=== PATIENT | male | born 1950 | race Caucasian/White ===

== ENCOUNTER → 2018-02-13 10:41 | Outpatient (CLI) | payer MEDICARE, OTHER, SELFPAY ==
[2018-02-13 13:12] LABS: PSA,Total- Diagnostic 4.68 ng/mL (0.0-4.0)
== END ==
PROVIDERS: Family Provider Internal Medicine; PCP Internal Medicine; Visit Provider Urology
DX: C61 Malignant neoplasm of prostate (principal)
CPT/HCPCS: 36415; 84153

== ENCOUNTER → 2018-03-05 17:18 | Outpatient (CLI) | payer MEDICARE, OTHER, SELFPAY ==
--- NOTE | 2018-03-05 | IMM_PTH ---
PATIENT: FARHAD DUNAWAY LOC: [facility] U#:[id number] AGE/SX: 74/M ROOM: RE03/05/[address]: Dr. Mauro Gerber MD : 1950 BED: DIS: SPEC #: [id number] RECD: 03/07/18 11:21 STATUS: ANA CURT #: [id number] BASIL: 03/05/18 00:[address]: Mauro Gerber DEPT: IMMUNOHISTOCHEMISTRY RECD BY: Nisha Duran Tissues: F - PROSTATE LEFT Procedures: P40 (add) 34BE12 (initial) PHYSICIAN & INSTITUTION [place] [id number] SPECIMEN INFORMATION: Tissue Source: F - Left prostate, base, core biopsy Clinical Info: Elevated PSA Specimen Number: [id number] CPT code: 07724, 80917 METHODOLOGY: Deparaffinized sections of prefer/formalin-fixed tissue or PAP/DQ stained slides are incubated with monoclonal/polyclonal antibodies/oligonucleotide probes. Localization is made via biotin free immunoperoxidase method. Appropriate controls are performed and reacted as expected. Results on target cell population are indicated in the following table: RESULTS: ANTIBODY / CLONE RESULT Block F P40 (BC28) negative 34BE12 (34BE12) negative These tests were developed and their performance characteristics determined by [facility]. They may not have been cleared or approved by the U.S. Food and Drug Administration. The FDA has determined that such clearance or approval is not necessary. INTERPRETATION: F. Left prostate, base, core biopsy: Adenocarcinoma. SJ:shahab 03/08/18
--- NOTE | 2018-03-05 08:00 | PROSBIL_PTH ---
PATIENT: FARHAD DUNAWAY LOC: [facility] U#:[id number] AGE/SX: 74/M ROOM: RE03/05/[address]: Dr. Mauro Gerber MD : 1950 BED: DIS: SPEC #: [id number] RECD: 03/05/18 16:56 STATUS: ANA CURT #: [id number] BASIL: 03/05/18 08:[address]: Mauro Gerber DEPT: SURGICAL PATHOLOGY RECD BY: Brent Prabhakar ENTERED: 03/06/18 07:31 SP TYPE: PROST BX ANDRÉS DR: Dr. Katarina Abarca MD Tissues: A - PROSTATE RIGHT B - PROSTATE RIGHT C - PROSTATE RIGHT D - PROSTATE LEFT E - PROSTATE LEFT F - PROSTATE LEFT Procedures: PROSTATE BX HEADER OPERATION: Prostate biopsy PRE-OP DIAGNOSIS: Elevated PSA TISSUE SUBMITTED: A - Right apex, B - Right mid, C - Right base, D - Left apex, E - Left mid, F - Left base MICROSCOPIC DIAGNOSIS A. Right prostate, apex, core biopsy: Prostatic tissue, negative for malignancy. Focal atrophy. B. Right prostate, mid, core biopsy: Prostatic adenocarcinoma: [place] grade: 3+4=7 Number of cores involved: 2 out of 2 Proportion of tissue involved: ~25% Perineural invasion: Not identified. Greatest tumor length: 0.5 cm, discontinuous C. Right prostate, base, core biopsy: Prostatic tissue, negative for malignancy. D. Left prostate, apex, core biopsy: Prostatic adenocarcinoma: [place] grade: 3+3=6 Number of cores involved: 1 out of 3 Proportion of tissue involved: ~15% Perineural invasion: Not identified. Greatest tumor length: 0.3 cm E. Left prostate, mid, core biopsy: Prostatic tissue, negative for malignancy. F. Left prostate, base, core biopsy: Prostatic adenocarcinoma: [place] grade: 3+3=6 Number of cores involved: 1 out of 3 Proportion of tissue involved: ~5% Perineural invasion: Not identified. Greatest tumor length: 0.1 cm See comment. SJ:shahab 03/07/18 COMMENT F. Immunohistochemistry ([id number]) supports the above diagnosis. MICROSCOPIC DESCRIPTION Slides are reviewed. GROSS DESCRIPTION A - Received is one container designated prostate, right apex. The specimen consists of three elongated fragments of light kelsey-white soft tissue measuring 0.3 to 1.2 cm in length and 0.1 cm in diameter. The specimen is totally submitted in one cassette. B - Received is one container designated prostate, right mid. The specimen consists of two elongated fragments of light kelsey-white soft tissue each measuring 1.6 cm in length and 0.1 cm in diameter. The specimen is totally submitted in one cassette. C - Received is one container designated prostate, right base. The specimen consists of two elongated fragments of light kelsey-white soft tissue measuring 1 and 1.5 cm in length and 0.1 cm in diameter. The specimen is totally submitted in one cassette. D - Received is one container designated prostate, left apex. The specimen consists of three elongated fragments of light kelsey-white soft tissue measuring 0.3 to 1.5 cm in length and 0.1 cm in diameter. The specimen is totally submitted in one cassette. E - Received is one container designated prostate, left mid. The specimen consists of two elongated fragments of light kelsey-white soft tissue measuring 1 and 1.5 cm in length and 0.1 cm in diameter. The specimen is totally submitted in one cassette. F - Received is one container designated prostate, left base. The specimen consists of three elongated fragments of light kelsey-white soft tissue measuring 0.6 to 1.5 cm in length and 0.1 cm in diameter. The specimen is totally submitted in one cassette. / TREY:shahab 03/06/18 TC:0 CPT: G0146 ADDENDUM ADDENDUM ADDENDUM ADDENDUM ADDENDUM ADDENDUM ADDENDUM ADDENDUM 04/10/2018 10:32 ADDENDUM 04/10/2018 10:32 ADDENDUM 04/10/2018 10:32 ADDENDUM 04/10/2018 10:32 ADDENDUM 04/10/2018 10:32 An order for Oncotype testing was received from Dr. Gerber. This necessitated case review, block and slide selection by pathologist at [facility]. Genomic Prostate Score = 28 Results of the complete Oncotype testing (CSID report) are viewable in EMR under: Reports - Pathology - Lab Pathology Report, Scanned.
== END ==
PROVIDERS: Visit Provider Urology
DX: R97.20 Elevated prostate specific antigen [PSA] (principal)
CPT/HCPCS: 88305; 88341; 88342; G0416

== ENCOUNTER → 2018-04-23 12:38 | Outpatient (CLI) | payer MEDICARE, OTHER, SELFPAY ==
[2018-04-23 13:43] LABS: PSA,Total- Diagnostic 4.19 ng/mL (0.0-4.0)
== END ==
PROVIDERS: Family Provider Internal Medicine; PCP Internal Medicine; Visit Provider Urology
DX: C61 Malignant neoplasm of prostate (principal)
CPT/HCPCS: 36415; 84153

== ENCOUNTER 2018-06-06 05:21 | Inpatient (IN) | payer MEDICARE, OTHER, SELFPAY ==
[2018-05-29 13:09] VITALS: BP 144/72; PULSE 77; RESP 16; TEMP 36.6; O2SAT 99; BMI 29.5
[2018-05-29 15:11] LABS: Hemoglobin 13.5 g/dl (13.0-16.5); Mean Corp Hgb Conc 34.6 g/gl (32-36); Mean Corpuscular Hgb 33.2 pg (27.0-32.0); Mean Corpuscular Volume 95.8 fL (80-94); Platelet Count 238 K/mm3 (150-450); RBC Distribution Width CV 13.2 % (11.6-14.6); RBC Distribution Width SD 44.6 fl (35.1-43.9); Red Blood Count 4.07 M/mm3 (4.6-6.2); White Blood Count 8.7 K/mm3 (4.4-11.0)
[2018-05-29 15:12] LABS: Scan Indicated on CBC? Y/N NO
[2018-05-29 15:38] LABS: Anion Gap 5 (5-15); BUN 20 mg/dL (7-18); BUN/Creat Ratio 18.5 RATIO (10-20); Calcium,Total 9.7 mg/dL (8.5-10.1); Chloride 105 mmol/L (98-107); Creatinine, Serum 1.08 mg/dL (0.70-1.30); EST Glomerular Filtration Rate 72 mL/min (>60); Est Glom Filt Rate - Afr Amer 88 mL/min (>60); Estimated Creatinine Clearance 62.05 ml/min; Glucose 95 mg/dL (74-106); Potassium 4.3 mmol/L (3.5-5.1); Sodium Level 139 mmol/L (136-145)
[2018-06-06] VITALS (12 sets, daily range): BP systolic 140–167; BP diastolic 54–71; PULSE 65–87; RESP 16–20; TEMP 36.1–37; O2SAT 96–100; BMI 29.5
--- NOTE | 2018-06-06 | PROST_PTH ---
PATIENT: FARHAD DUNAWAY LOC: [facility] U#:[id number] AGE/SX: 67/M [place] [facility] [place] RE06/06/[address]: Dr. Mauro Gerber MD : 1950 BED: 1 DIS: 06/07/2018 SPEC #: [id number] RECD: 06/06/18 15:12 STATUS: ANA REQ #: [id number] BASIL: 06/06/18 00:[address]: Mauro Gerber DEPT: SURGICAL PATHOLOGY RECD BY: Jone Jason ENTERED: 06/06/18 15:12 SP TYPE: PROSTATE OTHR DR: Dr. Katarina Abarca MD Tissues: A - Adipose tissue B - Prostate, NOS Procedures: Surgery Specimen Level IV Surgery Specimen Level HEADER OPERATION: Lap robotic radical prostatectomy PRE-OP DIAGNOSIS: Prostate cancer with elevated PSA TISSUE SUBMITTED: A - Fat over prostate, B - Prostate MICROSCOPIC DIAGNOSIS A. Fat over prostate, excision: Mature adipose tissue. No evidence of malignancy. B. Prostate, radical prostatectomy: Invasive adenocarcinoma. See cancer checklist below. AM:shahab 06/08/18 COMMENT PROSTATE CANCER (RADICAL) SUMMARY: Procedure - radical prostatectomy Prostate size - 5.5 x 4.5 x 3.8 cm Prostate weight - 70grams Lymph node sampling - no lymph nodes present. Histologic type - adenocarcinoma Histologic grade (Alpha Pattern): Primary pattern - 3 Secondary pattern - 3 Tertiary pattern - 3 Total Alpha score - 6 Tumor Quantitation: Tumor size - 2 x 1.5 x 0.7 cm (from glass slides) Extraprostatic extension - not identified Seminal vesicle invasion - not identified Margins - uninvolved by invasive carcinoma. Treatment effect on carcinoma - unknown Lymph-Vascular invasion - not identified Perineural invasion - focally present Additional pathologic findings - acute and chronic prostatitis, focal PATHOLOGIC STAGE: pT2c Nx Mx The above summary is in compliance with [employer] (CAP) Cancer Protocols Checklist and [place] [employer] Committee on Cancer (AJCC), Staging Manual, 8th Ed. Adenocarcinoma is identified in the most apical shave, distal urethral margin. The base of the gland is free of carcinoma. There is no extraprostatic tumor seen. Clinical correlation is suggested. MICROSCOPIC DESCRIPTION Slides are reviewed. GROSS DESCRIPTION A - Received in fixative is one container labeled with the patient's name and designated fat over prostate. The specimen consists of a piece of yellow adipose tissue measuring 3.5 x 2.5 x 0.5 cm. No mass lesion is identified. Asphalt Tar [employer] Gra[employer] Roofer sections are submitted in one cassette. The specimen will be submitted after overnight fixation. / SJ:shahab 06/06/18 B - Received in fixative is one container labeled with the patient's name and designated prostate. The specimen consists of a prostate gland including seminal vesicles and vas deferens. The prostate gland measures 5.5 cm transversely, 4.5 cm craniocaudally and 3.8 cm anterior-posteriorly. The gland weighs 70 gm. On palpation, no mass lesions are identified. The specimen is differentially inked as follows: anterior - red, right half - blue, left half - green and posterior portion of entire gland - black. The specimen is cut in a superior to inferior fashion in 3 to 4 mm intervals. No distinct mass lesion is identified. Asphalt [place] Roofer sections are submitted in 20 cassettes as follows: 1 - distal urethral shaved margin, 2 - proximal urethral shaved margin, 3 - seminal vesicles, 4 & 5 - most distal section of prostate gland, 6-9 - apex of gland, 10-15 - mid portion, 16-20 - basal portion of gland. / AM:shahab 06/07/18 TC:0 CPT: 01529, 09791
[2018-06-06 06:11] LABS: Bedside Glucose 104 mg/dL (70-110)
--- NOTE | 2018-06-06 07:28 | PCM.DC.URO ---
Discharge Diet: Light diet - advance as tolerated, Soft diet Discharge Activity: May not drive while taking narcotic pain medications., May Shower May shower in (days): 1 Lifting Restrictions: no lifting > 10 lbs Call your doctor if your incision/area has: Continuous Slow Oozing, Sudden Increased Bleeding, Increased Pain/ Swelling, Increased Redness, Foul Smelling Discharge, Swelling at the incision site Call your doctor if you observe: Fever of 101 or Higher, Inability to have a bowel movement, Uncontrolled pain Suture Line Care: Avoid Pulling/Pushing, Avoid Pinching/Bending Catheter: Marie to leg bag, Marie to large bag Drain: [place] Instructions: Discharge Instructions for Radical Prostatectomy Allergies/Adverse Reactions: Allergies No Known Allergies Allergy (Verified 05/29/18 13:03) Medications to take at Discharge Allopurinol 100 mg PO DAILY 05/29/18 Aspirin E.C. [Ecotrin] 81 mg PO DAILY@0800 05/29/18 Atorvastatin Calcium [Lipitor] 20 mg PO QHS 05/29/18 Lisinopril 20 mg PO DAILY 05/29/18 Metformin HCl [Metformin HCl ER] 1,000 mg PO DAILY 05/29/18 Multivitamin [Multiple Vitamins] 1 each PO DAILY 05/29/18 Ciprofloxacin [Cipro] 500 mg PO BID #14 tab 06/06/18 Docusate Sodium [Colace] 100 mg PO BID #20 cap 06/06/18 Hydrocodone/Acetaminophen [[place] 5-325 Tablet] 1 ea PO Q4H PRN PRN #14 tab 06/06/18 The following prescriptions were given: Hydrocodone/Acetaminophen [[place] 5-325 Tablet] 1 ea PO Q4H PRN PRN #14 tab PRN Reason: Pain Ciprofloxacin [Cipro] 500 mg PO BID #14 tab Docusate Sodium [Colace] 100 mg PO BID #20 cap Primary Care Physician: Katarina Abarca MD [Primary Care Provider] - Test Results: Test results from this visit will be discussed in further detail at your follow-up appointment, if applicable. Please Follow Up With: Mauro Gerber MD When: Call for an appt next to remove marie. Proposed Discharge Date: 06/07/18
--- NOTE | 2018-06-06 07:31 | DCINST_ITS ---
Discharge Diet: Light diet - advance as tolerated, Soft diet Discharge Activity: May not drive while taking narcotic pain medications., May Shower May shower in (days): 1 Lifting Restrictions: no lifting > 10 lbs Call your doctor if your incision/area has: Continuous Slow Oozing, Sudden Increased Bleeding, Increased Pain/ Swelling, Increased Redness, Foul Smelling Discharge, Swelling at the incision site Call your doctor if you observe: Fever of 101 or Higher, Inability to have a bowel movement, Uncontrolled pain Suture Line Care: Avoid Pulling/Pushing, Avoid Pinching/Bending Catheter: Marie to leg bag, Marie to large bag Drain: [place] Instructions: Discharge Instructions for Radical Prostatectomy Allergies/Adverse Reactions: Allergies No Known Allergies Allergy (Verified 05/29/18 13:03) Medications to take at Discharge Allopurinol 100 mg PO DAILY 05/29/18 Aspirin E.C. [Ecotrin] 81 mg PO DAILY@0800 05/29/18 Atorvastatin Calcium [Lipitor] 20 mg PO QHS 05/29/18 Lisinopril 20 mg PO DAILY 05/29/18 Metformin HCl [Metformin HCl ER] 1,000 mg PO DAILY 05/29/18 Multivitamin [Multiple Vitamins] 1 each PO DAILY 05/29/18 Ciprofloxacin [Cipro] 500 mg PO BID #14 tab 06/06/18 Docusate Sodium [Colace] 100 mg PO BID #20 cap 06/06/18 Hydrocodone/Acetaminophen [[place] 5-325 Tablet] 1 ea PO Q4H PRN PRN #14 tab 06/06/18 The following prescriptions were given: Hydrocodone/Acetaminophen [[place] 5-325 Tablet] 1 ea PO Q4H PRN PRN #14 tab PRN Reason: Pain Ciprofloxacin [Cipro] 500 mg PO BID #14 tab Docusate Sodium [Colace] 100 mg PO BID #20 cap Primary Care Physician: Katarina Abarca MD [Primary Care Provider] - Test Results: Test results from this visit will be discussed in further detail at your follow- up appointment, if applicable. Please Follow Up With: Mauro Gerber MD When: Call for an appt next to remove marie. Proposed Discharge Date: 06/07/18
[2018-06-06] MEDS: Cefazolin 2 GM in 0.9% Normal Saline 100 ML IV (07:35)
[2018-06-06] MEDS: Bupivacaine Mpf 0.5% 30 ML VIAL (07:57)
--- NOTE | 2018-06-06 10:53 | PCM.OPRPT ---
Report of Operation Date of Procedure: 06/06/18 Pre-Operative Diagnosis: Prostate cancer Post-Operative Diagnosis: Same Surgery/Procedure Performed:: Laparoscopic robotic assisted radical prostatectomy. EMG monitoring of pelvic nerves and sphincter. Suture suspension of the urethra to prevent incontinence Description of Surgical Findings:: 67-year-old male taken back to the operating room at the smooth induction of general anesthesia he was placed supine on the table in the dorsolithotomy position, penis and testicles and the abdomen was shaved and prepped and draped in usual sterile fashion, we placed a robotic trochars after obtaining pneumoperitoneum. The robot was docked I first dissected the sigmoid colon off the lateral wall then retracted the colon very carefully out of the pelvis and then dissected deep into the pelvis below the prostate and bladder dissected out the seminal vesicles and vas deferens both the left and right side and then created the space below the prostate above the rectum up to the sphincter posterior to the prostate, we then came out the pelvis dropped the bladder created the space of Retzius put the bladder on traction with the fourth arm I then dissected the fat over the prostate and sent this off as specimen we incised the endopelvic fascia in the left the right side and dissected up to the apex the apex was then dissected out and then we placed a stitch in the dorsal vein complex. I then came back to the bladder neck and prostate junction dissected between the bladder neck and the prostate junction down to the prostate and down to the catheter pulled the catheter up in traction dissected posteriorly between the bladder and the prostate until we reached the seminal vesicles and vas deferens I then dropped and the EMG electrodes were placed electrodes on the pelvic sidewalls and the right and left side checked the location of the nerves Ellik sidewall the left and right side after this was accomplished then mapping of these nerves were accomplished then I went through the right pedicle dissected the neurovascular bundle off the right side of the prostate all the way to the apex then went to the left pedicle dissected the neurovascular bundle on the left side all the way up to the apex transected to the dorsal vein complex dissected the apex of the prostate transected the urethra the prostate was then removed we then checked the EMG sphincter action and there was good EMG response of the sphincter the right pelvic lymph sphincter EMGs were intact the left weak signal in the left side. We then completed our suture suspension of the urethra between the bladder neck and the urethra using a V lock stitch this was done over a catheter after the urethra was suspended up then we completed the anastomosis catheter was left in place and the robot was undocked we extracted the prostate to the umbilical incision closed all the ports with Ankit Trujillo with a Ankit Trujillo stitches and subcuticular stitches. Patient anesthetic is currently being reversed there was minimal to no blood loss a good urethral sparing a good anastomosis. Type of Anesthesia:: General Drains: 18 fr [place] tip Estimated Blood Loss (mL): 50cc - Admit VTE Documentation VTE Present on Admission: No VTE Mechan Device Prophylaxis: SCD's VTE Pharm Prophylaxis ordered?: No
[2018-06-06 11:26] LABS: Bedside Glucose 143 mg/dL (70-110)
[2018-06-06] MEDS: Lactated Ringers 1,000 ML 125 ML IV ×4 (11:38→23:58)
[2018-06-06 11:46] LABS: Hematocrit 36.5 % (40-54); Hemoglobin 12.3 g/dl (13.0-16.5); Mean Corp Hgb Conc 33.7 g/gl (32-36); Mean Corpuscular Hgb 32.5 pg (27.0-32.0); Mean Corpuscular Volume 96.6 fL (80-94); Mean Platelet Vol. 10.3 fl (6.2-12.0); Platelet Count 210 K/mm3 (150-450); RBC Distribution Width CV 13.7 % (11.6-14.6); RBC Distribution Width SD 47.7 fl (35.1-43.9); Red Blood Count 3.78 M/mm3 (4.6-6.2); White Blood Count 13.1 K/mm3 (4.4-11.0)
[2018-06-06] MEDS: Ketorolac 15 MG/ML Vial IV ×3 (11:46→23:57)
[2018-06-06 11:47] LABS: Scan Indicated on CBC? Y/N NO
[2018-06-06 12:00] LABS: Anion Gap 9 (5-15); BUN 13 mg/dL (7-18); BUN/Creat Ratio 11.8 RATIO (10-20); Calcium,Total 8.7 mg/dL (8.5-10.1); Chloride 106 mmol/L (98-107); EST Glomerular Filtration Rate 71 mL/min (>60); Est Glom Filt Rate - Afr Amer 86 mL/min (>60); Estimated Creatinine Clearance 60.93 ml/min; Glucose 164 mg/dL (74-106); Potassium 4.1 mmol/L (3.5-5.1); Sodium Level 141 mmol/L (136-145)
[2018-06-06] MEDS: Aspirin E.C. 81 MG Tablet PO (17:39)
[2018-06-06] MEDS: 0.9% NaCl Peripheral Flush Adult/Peds IV (18:02)
[2018-06-06] MEDS: Ondansetron 4 MG/2 ML Vial IV (18:03)
[2018-06-06] MEDS: HYDROcodone Bitartrate/Apap 5/325 Tablet PO (19:05)
[2018-06-06] MEDS: Ciprofloxacin 500 MG Tablet PO (21:34)
[2018-06-06] MEDS: Docusate Sodium 100 MG Capsule 200 MG PO (21:34)
[2018-06-07 03:30] VITALS: BP 145/71; PULSE 83; RESP 16; TEMP 36.9; O2SAT 99
[2018-06-07 05:28] LABS: Hematocrit 32.6 % (40-54); Hemoglobin 11.3 g/dl (13.0-16.5); Mean Corp Hgb Conc 34.7 g/gl (32-36); Mean Corpuscular Hgb 33.5 pg (27.0-32.0); Mean Corpuscular Volume 96.7 fL (80-94); Mean Platelet Vol. 10.4 fl (6.2-12.0); Platelet Count 174 K/mm3 (150-450); RBC Distribution Width SD 43.6 fl (35.1-43.9); Red Blood Count 3.37 M/mm3 (4.6-6.2); White Blood Count 11.4 K/mm3 (4.4-11.0)
[2018-06-07 05:40] LABS: Anion Gap 8 (5-15); BUN 13 mg/dL (7-18); BUN/Creat Ratio 12.3 RATIO (10-20); Calcium,Total 8.3 mg/dL (8.5-10.1); Chloride 103 mmol/L (98-107); Creatinine, Serum 1.06 mg/dL (0.70-1.30); EST Glomerular Filtration Rate 74 mL/min (>60); Est Glom Filt Rate - Afr Amer 89 mL/min (>60); Estimated Creatinine Clearance 63.22 ml/min; Glucose 105 mg/dL (74-106); Potassium 4.1 mmol/L (3.5-5.1); Sodium Level 139 mmol/L (136-145)
[2018-06-07 06:12] LABS: Scan Indicated on CBC? Y/N NO
[2018-06-07] MEDS: Ketorolac 15 MG/ML Vial IV (06:36)
[2018-06-07] MEDS: 0.9% NaCl Peripheral Flush Adult/Peds IV (06:36)
[2018-06-07 07:25] VITALS: BP 131/62; PULSE 74; RESP 16; TEMP 36.9; O2SAT 96
--- NOTE | 2018-06-07 07:34 | PCM.PROGNOTE ---
Subjective: doing well, no pain - Physical Exam General: Alert, Oriented x3, Cooperative HEENT: Atraumatic, PERRLA, EOMI, Normocephalic Neck: Supple, No JVD, Negative Carotid Bruits Lungs: Clear to auscultation, Normal air movement Cardiovascular: Regular rate, No murmurs Abdomen: Bowel Sounds Present, Soft, Non Tender Extremities: No edema, Capillary Refill Less than 3 Seconds Skin: No rashes, No breakdown Musculoskeletal: No Tenderness to Palpation of Joints or Extremities Neurological: Cranial nerves II-XII grossly intact Psych/Mental Status: Normal Affect, Appropriate Vital Signs Temp Pulse Resp BP Pulse Ox 98.4 F 74 16 131/62 H 96 06/07/18 07:25 06/07/18 07:25 06/07/18 07:25 06/07/18 07:25 06/07/18 07:25 Oxygen Flow Rate (L/min) 2 Oxygen Delivery Method Room Air Weight: 87 kg Body Mass Index (BMI) 29.5 Intake and Output for Last 24 Hours 06/05/18 06/06/18 06/07/18 23:59 23:59 23:59 Intake Total 4548 / 4548 1666 / 1666 Output Total 475 / 475 350 / 350 Balance 4073 / 4073 1316 / 1316 Laboratory Tests Past 24 Hrs 06/06/18 06/06/18 06/07/18 11:40 11:40 05:20 WBC 13.1 H 11.4 H RBC 3.78 L 3.37 L Hgb 12.3 L 11.3 L Hct 36.5 L 32.6 L MCV 96.6 H 96.7 H MCH 32.5 H 33.5 H MCHC 33.7 34.7 RDW 13.7 13.0 RDW Differential 47.7 H 43.6 Plt Count 210 174 MPV 10.3 10.4 Sodium 141 Potassium 4.1 Chloride 106 Carbon Dioxide 26.0 Anion Gap 9 BUN 13 Creatinine 1.10 Estim Creat Clear Calc 60.93 Est GFR (MDRD) Af Amer 86 Est GFR (MDRD) Non-Af 71 BUN/Creatinine Ratio 11.8 Glucose 164 H Calcium 8.7 06/07/18 05:20 WBC RBC Hgb Hct MCV MCH MCHC RDW RDW Differential Plt Count MPV Sodium 139 Potassium 4.1 Chloride 103 Carbon Dioxide 28.0 Anion Gap 8 BUN 13 Creatinine 1.06 Estim Creat Clear Calc 63.22 Est GFR (MDRD) Af Amer 89 Est GFR (MDRD) Non-Af 74 BUN/Creatinine Ratio 12.3 Glucose 105 Calcium 8.3 L POC Glucose 06/06/18 11:23 POC Glucose 143 H Medical Necessity - Tobacco Use Smoking Status: Current every day smoker Assessment/Plan home if tolerates diet okay and ambulates ok home with marie.
[2018-06-07] MEDS: Aspirin E.C. 81 MG Tablet PO (08:02)
[2018-06-07] MEDS: Multivitamins,Therapeutic Tablet 1 TABLET PO (08:02)
[2018-06-07] MEDS: Docusate Sodium 100 MG Capsule 200 MG PO (08:03)
[2018-06-07] MEDS: Allopurinol 100 MG Tablet PO (08:03)
[2018-06-07] MEDS: Lisinopril 20 MG Tablet PO (08:03)
[2018-06-07] MEDS: Ciprofloxacin 500 MG Tablet PO (08:03)
--- NOTE | 2018-06-07 08:37 | CASEMGMT ---
As per plate cleaner, pt will bring a copy of LW/POA into the hospital. ARETHA Nascimento, ADDICTION COUNSELOR
--- NOTE | 2018-06-07 11:57 | CASEMGMT ---
RN CM Note: Intro role of CM to patient in room. 06/06/18- pt had lap robotic assisted TURP. Pt has no concerns re: dc today. Plan is to have f/u with Dr. Gerber on dc. Questions answered. No new needs identified. PCP: Dr. Barbara Abarca Specialist: Dr. Gerber Pharmacy: [facility], [place] in [place] Prescription coverage: yes Living arrangements: own home with who is able to assist. DME: none DC PLAN: Home with physician f/u.
== END 2018-06-07 12:10 | disposition home or self-care (01) | DRG 708 ==
LOC: ACINP 05:22 → MS2 12:18
PROVIDERS: Admitting Provider Urology; Family Provider Internal Medicine; PCP Internal Medicine; Referring Provider Urology; Visit Provider Urology
PROC: 0VT04ZZ Resection of Prostate, Percutaneous Endoscopic Approach (ICD-10-PCS; CPT 55866; principal; 2018-06-06 07:10)
DX: C61 Malignant neoplasm of prostate (principal); I10 Essential (primary) hypertension; E11.9 Type 2 diabetes mellitus without complications; Z79.84 Long term (current) use of oral hypoglycemic drugs; F17.200 Nicotine dependence, unspecified, uncomplicated
CPT/HCPCS: 36415; 80048; 82962; 83036; 85027; 86850; 86900; 88304; 88305; 88309; 93005; J7120; A4216; J2405

== ENCOUNTER 2018-06-12 10:18 | Emergency (ER) | payer MEDICARE, OTHER, SELFPAY ==
[2018-06-12 10:20] VITALS: BP 156/69; PULSE 79; RESP 18; TEMP 36.8; O2SAT 100; BMI 29.4
--- NOTE | 2018-06-12 10:52 | ED.VISSUMM ---
- ER Visit Summary Date of Service: 06/12/18 Chief Complaint: Constipation History of Present Illness: The patient is a 67 M with no bowel movement for 6 days. He has not had a bowel movement since his prostatectomy 6 days ago. He has been taking Colace with no improvement. He was on [place], his last dose was yesterday. He does feel like he has to have a bowel movement. He is passing gas. No significant pain. No fevers. No urinary symptoms. Physical Examination: Afebrile and vital signs unremarkable except a blood pressure of 156/69. Abdomen is slightly distended but nontender and soft. Postoperative sites are clean, dry, and intact. Skin appears normal. Rectal exam is pending at the time of this dictation. Test Results: X-ray shows a normal bowel gas pattern. Emergency Department Course and Treatment: Rectal exam showed no stool, mass, or bleeding. X-rays unremarkable. No sign of ileus or obstruction pattern. Patient will be treated with magnesium citrate. He was also given a prescription for senna. Follow-up with his doctor or return for any new or worsening issues. Treatment Plan: As above Disposition: Discharged Impression: 1. Constipation This note was generated with [employer] dictation software. It may contain incorrect words, spelling, and punctuation that were not noted in review of the chart prior to signing ED Disposition - Plan for ED Patient: Chief Complaint: Constipation Referrals: Katarina Abarca MD [Primary Care Provider] -
--- NOTE | 2018-06-12 11:29 | RAD_ITS ---
STUDY: X-RAY - ABDOMEN/PELVIS REASON FOR EXAM: Male, 67 years old. No bowel movements since one week. Recent prostatectomy. Hematuria. TECHNIQUE: Two AP supine views of the abdomen and pelvis. COMPARISON: None. FINDINGS: There is an unremarkable bowel gas pattern. The visualized liver, spleen and kidneys are grossly normal in size and morphology. A catheter is seen in the pelvis most likely within the urinary bladder. There are diffuse degenerative changes of the visualized lumbar spine. RAD/Abdomen Single View (Portable) IMPRESSION: A catheter is seen within the urinary bladder. Electronically Signed: Ollie Davis MD at 12:49 EST Tel [phone], Service support ,
--- NOTE | 2018-06-12 13:05 | ED.DEP ---
ED Disposition - Plan for ED Patient: Chief Complaint: Constipation Instructions: ED Constipation Prescriptions: Senna [Senokot] 1 tab PO DAILY #10 tab Referrals: Katarina Abarca MD [Primary Care Provider] -
[2018-06-12] MEDS: Magnesium Citrate 300 ML PO (13:14)
== END 2018-06-12 13:15 | disposition home or self-care (01) ==
LOC: ED 11:00
PROVIDERS: Emergency Provider Emergency Medicine; Family Provider Internal Medicine; PCP Internal Medicine
DX: K59.00 Constipation, unspecified (principal); I10 Essential (primary) hypertension; E11.9 Type 2 diabetes mellitus without complications; M10.9 Gout, unspecified; Z79.84 Long term (current) use of oral hypoglycemic drugs; Z79.82 Long term (current) use of aspirin; Z79.899 Other long term (current) drug therapy; Z72.0 Tobacco use
CPT/HCPCS: 74018; 99282

== ENCOUNTER → 2018-08-27 11:00 | Outpatient (CLI) | payer MEDICARE, OTHER, SELFPAY ==
[2018-08-27 12:08] LABS: PSA,Total- Diagnostic < 0.01 ng/mL (0.0-4.0)
--- OUTSIDE RECORDS SUMMARY | 2018-10-29 21:19 | XMS RPT_ITS ---
:1950 Author Organization [facility] Care Team Providers Name Role Phone TALAMPMARLENE, PRISCILA D Referring Unavailable TALAMPAS, PRISCILA D Attending Unavailable TALAMPAS, PRISCILA D Referring Unavailable TALAMPAS, PRISCILA D Attending Unavailable ZabrinaMauro Attending Unavailable ZabrinaMauro Referring Unavailable Talampas, Priscila Primary Care Unavailable ZabrinaMauro Attending Unavailable ZabrinaMauro Referring Unavailable Talampas, Priscila Primary Care Unavailable ZabrinaMauro Attending Unavailable Talampas, Priscila Primary Care Unavailable ZabrinaMauro soriano Referring Unavailable ZabrinaMauro Attending Unavailable ZabrinaMauro soriano Referring Unavailable Talampas, Priscila Primary Care Unavailable Mauro Gerber Admitting Unavailable ZabrinaMauro soriano Attending Unavailable ZabrinaMauro Referring Unavailable Talampas, Priscila Primary Care Unavailable Talampas, Priscila Primary Care Unavailable Ryan Cramer Attending Unavailable Gil Michelle Attending Unavailable Zabrina John Referring Unavailable PROBLEMS PROBLEMS DATE TYPE CONDITION / CODE ATTENDING STATUS SOURCE 06/07/2018 Unknown C61 - Malignant Mauro Gerber Active [place] neoplasm of prostate / [facility] C61(ICD-10) Hospital Repository 06/18/2018 Unknown R94.31 - Abnormal [place], Active [place] electrocardiogram [facility] [ECG] [EKG] / Hospital R94.31(ICD-10) Repository 06/18/2018 Unknown I45.10 - Unspecified [place], Active [place] right bundle-branch [facility] block / I45.10(ICD-10) Hospital Repository 04/20/2018 Active Type 2 diabetes NA Active [place] mellitus without Clinic Main complications / [place] E11.9(ICD-10) Repository 04/20/2018 Active Gout, unspecified / NA Active [place] M10.9(ICD-10) Clinic Main [place] Repository 06/05/2015 Active Essential (primary) NA Active [place] hypertension / Clinic Main I10(ICD-10) [place] Repository 10/16/2017 Active Encounter for other NA Active [place] specified special Clinic Main examinations / [place] Z01.89(ICD-10) Repository 10/16/2017 Active Mixed hyperlipidemia / NA Active [place] E78.2(ICD-10) Clinic Main [place] Repository 10/16/2017 Active Type 2 diabetes NA Active [place] mellitus with mild Clinic Main nonproliferative [place] diabetic retinopathy Repository with macular edema, unspecified eye / E11.3219(ICD-10) 10/16/2017 Active Hyperuricemia without NA Active [place] signs of inflammatory 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 Values obtained with different assay methods cannot be used interchangably. When changing PSA assays in the course of monitoring a patient, additional sequential testing should be carried out to confirm baseline values. Performed By: #### L501.9940 #### [facility] [address] [place], [address] DISCHARGE INSTRUCTION Observed: 06/12/2018 Status: F Source: LO 4:11 PM [facility] REPOSITORY [facility] Medical Records Department [address] [place] [address] Discharge Instruction 06/12/18 1305 MR#: [id number] Acct: [id number] Name: REBECCA QUARLES Rep #: [id number] : 1950 67 From: Ryan Cramer MD PCP: Priscila Abarca MD Status: DEP ER ED Disposition - Plan for ED Patient: Chief Complaint: Constipation Instructions: ED Constipation Prescriptions: Senna [Senokot] 1 tab PO DAILY #10 tab Referrals: Priscila Abarca MD [Primary Care Provider] - What to do if you have Problems For any increased pain, shortness of breath, bleeding, nausea or vomiting, chest pain, or any unexpected problems, contact your Primary Care Provider. Call [facility] ([phone]) or report to the closest Emergency Room. Call 911 if necessary. 06/12/18 1611 <Electronically signed by Ryan Cramer MD> Date Ryan Cramer MD Cosigner Signature (If Indicated): Date CC: Priscila Abarca MD EMERGENCY DEPARTMENT Observed: 06/12/2018 Status: F Source: [place] SUMMARY 4:11 PM [facility] REPOSITORY [facility] Medical Records Department [address] [place] [address] Emergency Department Summary 06/12/18 1052 MR#: [id number] Acct: [id number] Name: BEL QUARLESGARTH [place] Rep #: [id number] : 1950 67 From: Ryan Cramer MD PCP: Priscila Abarca MD Status: DEP ER - ER Visit Summary Date of Service: 06/12/18 Chief Complaint: Constipation History of Present Illness: The patient is a 67 M with no bowel movement for 6 days. He has not had a bowel movement since his prostatectomy 6 days ago. He has been taking Colace with no improvement. He was on Foley, his last dose was yesterday. He does feel like he has to have a bowel movement. He is passing gas. No significant pain. No fevers. No urinary symptoms. Physical Examination: Afebrile and vital signs unremarkable except a blood pressure of 156/69. Abdomen is slightly distended but nontender and soft. Postoperative sites are clean, dry, and intact. Skin appears normal. Rectal exam is pending at the time of this dictation. Test Results: X-ray shows a normal bowel gas pattern. Emergency Department Course and Treatment: Rectal exam showed no stool, mass, or bleeding. X-rays unremarkable. No sign of ileus or obstruction pattern. Patient will be treated with magnesium citrate. He was also given a prescription for senna. Follow-up with his doctor or return for any new or worsening issues. Treatment Plan: As above Disposition: Discharged Impression: 1. Constipation This note was generated with [employer] dictation software. It may contain incorrect words, spelling, and punctuation that were not noted in review of the chart prior to signing ED Disposition - Plan for ED Patient: Chief Complaint: Constipation Referrals: Priscila Abarca MD [Primary Care Provider] - What to do if you have Problems For any increased pain, shortness of breath, bleeding, nausea or vomiting, chest pain, or any unexpected problems, contact your Primary Care Provider. Call [facility] ([phone]) or report to the closest Emergency Room. Call 911 if necessary. 06/12/18 1611 <Electronically signed by Ryan Cramer MD> Date Ryan Cramer MD Cosigner Signature (If Indicated): Date CC: Priscila Abarca MD ABDOMEN SINGLE VIEW Observed: 06/12/2018 Status: F Source: [place] (PORTABLE) 11:30 AM [facility] REPOSITORY [facility] Imaging Services [address] [place] [address] Abdomen Single View (Portable) MR#: [id number] Acct: [id number] Name: REBECCA QUARLES Rep #: [id number] : 1950 M 67 From: Ollie Davis MD PCP: Priscila Abarca MD Status: REG ER Study: Abdomen Single View (Portable) Date of Exam: 06/12/18 Exam# [id number] Ordering Dr: Ryan Cramer MD STUDY: X-RAY - ABDOMEN/PELVIS REASON FOR EXAM: Male, 67 years old. No bowel movements since one week. Recent prostatectomy. Hematuria. TECHNIQUE: Two AP supine views of the abdomen and pelvis. COMPARISON: None. FINDINGS: There is an unremarkable bowel gas pattern. The visualized liver, spleen and kidneys are grossly normal in size and morphology. A catheter is seen in the pelvis most likely within the urinary bladder. There are diffuse degenerative changes of the visualized lumbar spine. RAD/Abdomen Single View (Portable) IMPRESSION: A catheter is seen within the urinary bladder. Electronically Signed: Ollie Davis MD at 12:49 EST Tel [phone], Service support , CC: Ryan Cramer MD; Priscila Abarca MD Preventive Maintenance Coordinator: Signed BASIC METABOLIC Collected: 06/07/2018 Status: F Source: [place] PROFILE (BMP) 5:20 AM [facility] REPOSITORY TYPE CODE TESTS RESULT OUT OF RANGE REFERENCE UNITS LAB L501.0100 74-106 mg/dL Normal GLU 105 Result Comment: Fasting Glucose result from 100 to 125 mg/dL suggests IMPAIRED HOMEOSTASIS per A.D.A. criteria. Please note revised GLUCOSE reference range effective 2017. LAB L501.1000 7-18 mg/dL Normal BUN 13 LAB L501.1100 0.70-1.30 mg/dL Normal CREAT,SERUM 1.06 Result Comment: The validity of the calculated GFR AND GFRAA in patients over 70 years has not been determined. Clinical correlation is essential. LAB L501.1110 >60 mL/min Normal EST GFR 74 Result Comment: Non- GFR Calc LAB L501.1115 >60 mL/min Normal EST GFR - AA 89 Result Comment: GFR Calc LAB L501.1255 ml/min Normal Estimated CRCL 63.22 LAB L501.1300 10-20 RATIO Normal BUN/CRE 12.3 LAB L501.2200 8.5-10 mg/dL Low .1 CA 8.3 LAB L501.5300 136-14 mmol/L Normal 5 NA 139 LAB L501.5600 3.5-5. mmol/L Normal 1 K 4.1 LAB L501.5900 98-107 mmol/L Normal CL 103 LAB L501.6100 21.0-3 mmol/L Normal 2.0 CO2 28.0 LAB L501.6200 5-15 Normal GAP 8 Performed By: #### L500.2500 #### [facility] [address] [place], [address] CBC-COMPLETE BLOOD CNT Collected: 06/07/2018 Status: F Source: [place] NO DIFF 5:20 AM [facility] REPOSITORY TYPE CODE TESTS RESULT OUT OF RANGE REFERENCE UNITS LAB L100.1000 4.4-11.0 K/mm3 High WBC 11.4 LAB L100.1200 4.6-6.2 M/mm3 Low RBC 3.37 LAB L100.1300 13.0-16.5 g/dl Low HGB 11.3 LAB L100.1400 40-54 % Low HCT 32.6 LAB L100.1500 80-94 fL High MCV 96.7 LAB L100.1600 27.0-32.0 pg High MCH 33.5 LAB L100.1700 32-36 g/gl Normal MCHC 34.7 LAB L100.1810 11.6-14.6 % Normal RDW CV 13.0 LAB L100.1820 35.1-43.9 fl Normal RDW SD 43.6 LAB L100.1900 150-450 K/mm3 Normal PLT 174 LAB L100.2000 6.2-12.0 fl Normal MPV 10.4 Performed By: #### L100.0500 #### [facility] [address] [place], [place], [id number] CBC-COMPLETE BLOOD CNT Collected: 06/06/2018 Status: F Source: [place] NO DIFF 11:40 AM [facility] REPOSITORY Order Comment: Comments: To be done in PACU TYPE CODE TESTS RESULT OUT OF RANGE REFERENCE UNITS LAB L100.1000 4.4-11.0 K/mm3 High WBC 13.1 LAB L100.1200 4.6-6.2 M/mm3 Low RBC 3.78 LAB L100.1300 13.0-16.5 g/dl Low HGB 12.3 LAB L100.1400 40-54 % Low HCT 36.5 LAB L100.1500 80-94 fL High MCV 96.6 LAB L100.1600 27.0-32.0 pg High MCH 32.5 LAB L100.1700 32-36 g/gl Normal MCHC 33.7 LAB L100.1810 11.6-14.6 % Normal RDW CV 13.7 LAB L100.1820 35.1-43.9 fl High RDW SD 47.7 LAB L100.1900 150-450 K/mm3 Normal PLT 210 LAB L100.2000 6.2-12.0 fl Normal MPV 10.3 Performed By: #### L100.0500 #### [facility] [address] [place], [place], [address] BASIC METABOLIC Collected: 06/06/2018 Status: F Source: [place] PROFILE (BMP) 11:40 AM [facility] REPOSITORY Order Comment: Comments: To be done in PACU TYPE CODE TESTS RESULT OUT OF RANGE REFERENCE UNITS LAB L501.0100 74-106 mg/dL High GLU 164 Result Comment: Fasting Glucose result greater than or equal to 126 mg/dL suggests DIABETES MELLITUS per A.D.A. criteria. Please note revised GLUCOSE reference range effective 2017. LAB L501.1000 7-18 mg/dL Normal BUN 13 LAB L501.1100 0.70-1.30 mg/dL Normal CREAT,SERUM 1.10 Result Comment: The validity of the calculated GFR AND GFRAA in patients over 70 years has not been determined. Clinical correlation is essential. LAB L501.1110 >60 mL/min Normal EST GFR 71 Result Comment: Non- GFR Calc LAB L501.1115 >60 mL/min Normal EST GFR - AA 86 Result Comment: GFR Calc LAB L501.1255 ml/min Normal Estimated CRCL 60.93 LAB L501.1300 10-20 RATIO Normal BUN/CRE 11.8 LAB L501.2200 8.5-10 mg/dL Normal .1 CA 8.7 LAB L501.5300 136-14 mmol/L Normal 5 NA 141 LAB L501.5600 3.5-5. mmol/L Normal 1 K 4.1 LAB L501.5900 98-107 mmol/L Normal CL 106 LAB L501.6100 21.0-3 mmol/L Normal 2.0 CO2 26.0 LAB L501.6200 5-15 Normal GAP 9 Performed By: #### L500.2500 #### [facility] [address] [facility] [place], [address] BEDSIDE GLUCOSE Collected: 06/06/2018 Status: F Source: [place] 11:23 AM [facility] REPOSITORY TYPE CODE TESTS RESULT OUT OF REFERENCE UNITS RANGE LAB L501.080 70-110 mg/dL High BEDSIDE GLU 143 Result Comment: MANAGEMENT OF PATIENT CARE PER NURSING PROTOCOL Performed By: #### L501.080 #### [facility] Point of Care [address] [place] [address] OPERATIVE REPORT Observed: 06/06/2018 Status: F Source: [place] 10:58 AM [facility] REPOSITORY [facility] Medical Records Department [address] [place] [address] Operative Report 06/06/18 1053 MR#: [id number] Acct: [id number] Name: REBECCA QUARLES Rep #: [id number] : 1950 67 From: Mauro Gerber MD PCP: Priscila Abarca MD Status: ADM IN Y Location: [facility] Report of Operation Date of Procedure: 06/06/18 Pre-Operative Diagnosis: Prostate cancer Post-Operative Diagnosis: Same Surgery/Procedure Performed:: Laparoscopic robotic assisted radical prostatectomy. EMG monitoring of pelvic nerves and sphincter. Suture suspension of the urethra to prevent incontinence Description of Surgical Findings:: 67-year-old male taken back to the operating room at the smooth induction of general anesthesia he was placed supine on the table in the dorsolithotomy position, penis and testicles and the abdomen was shaved and prepped and draped in usual sterile fashion, we placed a robotic trochars after obtaining pneumoperitoneum. The robot was docked I first dissected the sigmoid colon off the lateral wall then retracted the colon very carefully out of the pelvis and then dissected deep into the pelvis below the prostate and bladder dissected out the seminal vesicles and vas deferens both the left and right side and then created the space below the prostate above the rectum up to the sphincter posterior to the prostate, we then came out the pelvis dropped the bladder created the space of Retzius put the bladder on traction with the fourth arm I then dissected the fat over the prostate and sent this off as specimen we incised the endopelvic fascia in the left the right side and dissected up to the apex the apex was then dissected out and then we placed a stitch in the dorsal vein complex. I then came back to the bladder neck and prostate junction dissected between the bladder neck and the prostate junction down to the prostate and down to the catheter pulled the catheter up in traction dissected posteriorly between the bladder and the prostate until we reached the seminal vesicles and vas deferens I then dropped and the EMG electrodes were placed electrodes on the pelvic sidewalls and the right and left side checked the location of the nerves Ellik sidewall the left and right side after this was accomplished then mapping of these nerves were accomplished then I went through the right pedicle dissected the neurovascular bundle off the right side of the prostate all the way to the apex then went to the left pedicle dissected the neurovascular bundle on the left side all the way up to the apex transected to the dorsal vein complex dissected the apex of the prostate transected the urethra the prostate was then removed we then checked the EMG sphincter action and there was good EMG response of the sphincter the right pelvic lymph sphincter EMGs were intact the left weak signal in the left side. We then completed our suture suspension of the urethra between the bladder neck and the urethra using a V lock stitch this was done over a catheter after the urethra was suspended up then we completed the anastomosis catheter was left in place and the robot was undocked we extracted the prostate to the umbilical incision closed all the ports with Ankit Trujillo with a Ankit Turjillo stitches and subcuticular stitches. Patient anesthetic is currently being reversed there was minimal to no blood loss a good urethral sparing a good anastomosis. Type of Anesthesia:: General Drains: 18 fr quinault tip Estimated Blood Loss (mL): 50cc - Admit VTE Documentation VTE Present on Admission: No VTE Mechan Device Prophylaxis: SCD's VTE Pharm Prophylaxis ordered?: No 06/06/18 1058 <Electronically signed by Mauro Gerber MD> Date Mauro Gerber MD CC: Mauro Gerber MD; Priscila Abarca MD Signed DISCHARGE INSTRUCTION Observed: 06/06/2018 Status: F Source: [place] 7:31 AM [facility] RE[facility]ITORY [facility] Medical Records Department [address] [place] [address] Instructions for Home/Discharge Instructions 06/06/18 0728 MR#: [id number] Acct: [id number] Name: REBECCA QUARLES Rep #: [id number] : 1950 67 From: Mauro Gerber MD PCP: Priscila Abarca MD Status: ADM IN Discharge Diet: Light diet - advance as tolerated, Soft diet Discharge Activity: May not drive while taking narcotic pain medications., May Shower May shower in (days): 1 Lifting Restrictions: no lifting > 10 lbs Call your doctor if your incision/area has: Continuous Slow Oozing, Sudden Increased Bleeding, Increased Pain/ Swelling, Increased Redness, Foul Smelling Discharge, Swelling at the incision site Call your doctor if you observe: Fever of 101 or Higher, Inability to have a bowel movement, Uncontrolled pain Suture Line Care: Avoid Pulling/Pushing, Avoid Pinching/Bending Catheter: Marie to leg bag, Marie to large bag Drain: [place] Instructions: Discharge Instructions for Radical Prostatectomy Allergies/Adverse Reactions: Allergies No Known Allergies Allergy (Verified 05/29/18 13:03) Medications to take at Discharge Allopurinol 100 mg PO DAILY 05/29/18 Aspirin E.C. [Ecotrin] 81 mg PO DAILY@0800 05/29/18 Atorvastatin Calcium [Lipitor] 20 mg PO QHS 05/29/18 Lisinopril 20 mg PO DAILY 05/29/18 Metformin HCl [Metformin HCl ER] 1,000 mg PO DAILY 05/29/18 Multivitamin [Multiple Vitamins] 1 each PO DAILY 05/29/18 Ciprofloxacin [Cipro] 500 mg PO BID #14 tab 06/06/18 Docusate Sodium [Colace] 100 mg PO BID #20 cap 06/06/18 Hydrocodone/Acetaminophen [Foley 5-325 Tablet] 1 ea PO Q4H PRN PRN #14 tab 06/06/18 The following prescriptions were given: Hydrocodone/Acetaminophen [Foley 5-325 Tablet] 1 ea PO Q4H PRN PRN #14 tab PRN Reason: Pain Ciprofloxacin [Cipro] 500 mg PO BID #14 tab Docusate Sodium [Colace] 100 mg PO BID #20 cap Primary Care Physician: Priscila Abarca MD [Primary Care Provider] - Test Results: Test results from this visit will be discussed in further detail at your follow-up appointment, if applicable. Please Follow Up With: Mauro Gerber MD When: Call for an appt next to remove marie. Proposed Discharge Date: 06/07/18 06/06/18 0731 <Electronically signed by Mauro Gerber MD> Date Mauro Gerber MD CC: Priscila Abarca MD BEDSIDE GLUCOSE Collected: 06/06/2018 Status: F Source: [place] 5:38 AM [facility] REPOSITORY TYPE CODE TESTS RESULT OUT OF RANGE REFERENCE UNITS LAB L501.080 70-110 mg/dL Normal BEDSIDE GLU 104 Result Comment: MANAGEMENT OF PATIENT CARE PER NURSING PROTOCOL Performed By: #### L501.080 #### [facility] [place] [address] [address] PROSTATE RADICAL Observed: 06/06/2018 Status: F Source: [place] RESE[place] 12:00 AM [facility] RE[facility]ITORY Patient: REBECCA QUARLES : 1950 (67/M) Acct Num: [id number] Phys: Zabrina LOPEZ,Mauro Vicente Unit Num: [id number] Loc: MS2 [id number] Specimen: [id number] Received: 06/06/18 - 1512 Spec Type: PROSTATE TISSUES 1 TISSUES: A. Adipose tissue B. Prostate, NOS COMMENT PROSTATE CANCER (RADICAL) SUMMARY: Procedure - radical prostatectomy Prostate size - 5.5 x 4.5 x 3.8 cm Prostate weight - 70grams Lymph node sampling - no lymph nodes present. Histologic type - adenocarcinoma Histologic grade (Second Mesa Pattern): Primary pattern - 3 Secondary pattern - 3 Tertiary pattern - 3 Total Second [place]a score - 6 Tumor Quantitation: Tumor size - 2 x 1.5 x 0.7 cm (from glass slides) Extraprostatic extension - not identified Seminal vesicle invasion - not identified Margins - uninvolved by invasive carcinoma. Treatment effect on carcinoma - unknown Lymph-Vascular invasion - not identified Perineural invasion - focally present Additional pathologic findings - acute and chronic prostatitis, focal PATHOLOGIC STAGE: pT2c Nx Mx The above summary is in compliance with [employer] (CAP) Cancer Protocols Checklist and [place] Joint Committee on Cancer (AJCC), Staging Manual, 8th Ed. Adenocarcinoma is identified in the most apical shave, distal urethral margin. The base of the gland is free of carcinoma. There is no extraprostatic tumor seen. Clinical correlation is suggested. GROSS DESCRIPTION A - Received in fixative is one container labeled with the patient's name and designated fat over prostate. The specimen consists of a piece of yellow adipose tissue measuring 3.5 x 2.5 x 0.5 cm. No mass lesion is identified. Features Editor sections are submitted in one cassette. The specimen will be submitted after overnight fixation. / SJ:shahab 06/06/18 B - Received in fixative is one container labeled with the patient's name and designated prostate. The specimen consists of a prostate gland including seminal vesicles and vas deferens. The prostate gland measures 5.5 cm transversely, 4.5 cm craniocaudally and 3.8 cm anterior-posteriorly. The gland weighs 70 gm. On palpation, no mass lesions are identified. The specimen is differentially inked as follows: anterior - red, right half - blue, left half - green and posterior portion of entire gland - black. The specimen is cut in a superior to inferior fashion in 3 to 4 mm intervals. No distinct mass lesion is identified. Features Editor sections are submitted in 20 cassettes as follows: 1 - distal urethral shaved margin, 2 - proximal urethral shaved margin, 3 - seminal vesicles, 4 AND 5 - most distal section of prostate gland, 6-9 - apex of gland, 10-15 - mid portion, 16-20 - basal portion of gland. / AM:shahab 06/07/18 TC:0 CPT: 64047, 53594 HEADER OPERATION: Lap robotic radical prostatectomy PRE-OP DIAGNOSIS: Prostate cancer with elevated PSA TISSUE SUBMITTED: A - Fat over prostate, B - Prostate MICROSCOPIC DESCRIPTION Slides are reviewed. MICROSCOPIC DIAGNOSIS A. Fat over prostate, excision: Mature adipose tissue. No evidence of malignancy. B. Prostate, radical prostatectomy: Invasive adenocarcinoma. See cancer checklist below. AM:shahab 06/08/18 Signed Raphael [facility] 06/08/18 <signature on file> Performed By: #### PPROST #### [facility] [place], [address] CBC-COMPLETE BLOOD CNT Collected: 05/29/2018 Status: F Source: [place] NO DIFF 2:13 PM [facility] REPOSITORY TYPE CODE TESTS RESULT OUT OF RANGE REFERENCE UNITS LAB L100.1000 4.4-11.0 K/mm3 Normal WBC 8.7 LAB L100.1200 4.6-6.2 M/mm3 Low RBC 4.07 LAB L100.1300 13.0-16.5 g/dl Normal HGB 13.5 LAB L100.1400 40-54 % Low HCT 39.0 LAB L100.1500 80-94 fL High MCV 95.8 LAB L100.1600 27.0-32.0 pg High MCH 33.2 LAB L100.1700 32-36 g/gl Normal MCHC 34.6 LAB L100.1810 11.6-14.6 % Normal RDW CV 13.2 LAB L100.1820 35.1-43.9 fl High RDW SD 44.6 LAB L100.1900 150-450 K/mm3 Normal PLT 238 LAB L100.2000 6.2-12.0 fl Normal MPV 11.0 Performed By: #### L100.0500 #### [facility] [address] [facility] [place], [address] HEMOGLOBIN A1C Collected: 05/29/2018 Status: F Source: [place] 2:13 PM [facility] REPOSITORY TYPE CODE TESTS RESULT OUT OF RANGE REFERENCE UNITS LAB L501.9985 4.2-6.3 % Normal HGB A1C 6.0 Performed By: #### L501.9985 #### [facility] [address] [place], [address] BASIC METABOLIC Collected: 05/29/2018 Status: F Source: [place] PROFILE (BMP) 2:13 PM [facility]POS[facility] TYPE CODE TESTS RESULT OUT OF RANGE REFERENCE UNITS LAB L501.0100 74-106 mg/dL Normal GLU 95 Result Comment: Please note revised GLUCOSE reference range effective 2017. LAB L501.1000 7-18 mg/dL High BUN 20 LAB L501.1100 0.70-1.30 mg/dL Normal CREAT,SERUM 1.08 Result Comment: The validity of the calculated GFR AND GFRAA in patients over 70 years has not been determined. Clinical correlation is essential. LAB L501.1110 >60 mL/min Normal EST GFR 72 Result Comment: Non- GFR Calc LAB L501.1115 >60 mL/min Normal EST GFR - AA 88 Result Comment: GFR Calc LAB L501.1255 ml/min Normal Estimated CRCL 62.05 LAB L501.1300 10-20 RATIO Normal BUN/CRE 18.5 LAB L501.2200 8.5-10 mg/dL Normal .1 CA 9.7 LAB L501.5300 136-14 mmol/L Normal 5 NA 139 LAB L501.5600 3.5-5. mmol/L Normal 1 K 4.3 LAB L501.5900 98-107 mmol/L Normal CL 105 LAB L501.6100 21.0-3 mmol/L Normal 2.0 CO2 29.0 LAB L501.6200 5-15 Normal GAP 5 Performed By: #### L500.2500 #### [facility] [address] [place], [address] TYPE AND SCREEN Collected: 05/29/2018 Status: F Source: [place] 2:13 PM [facility] REPOSITORY Order Comment: Surgery Date: 06/06/18 Hx of Preganancy in last 3 Months No Ever experience any problems with transfusion(s)? N Hx of Transfusion in last 3 Months N Reason for Type AND Screen/Red Cells: SURGERY SURGICAL PROCEDURE: PROSTATE REMOVAL TYPE CODE TESTS RESULT OUT OF RANGE REFERENCE UNITS LAB B10.0800 AB Normal BLOOD TYPE GEL POSITIVE LAB B100.4000 Normal Antibody NEGATIVE Screen Performed By: #### B101.7475 #### [facility] [address] [place], [address] PROGRESS Observed: 04/27/2018 Status: COMPLETED Source: [place] 10:00 AM [facility] REPOSITORY HNO ID: [id number] Author: Priscila Abarca Service: (none) Author Type: Physician Type: Progress Notes Filed: 05/13/2018 8:47 PM Note Text: Patient presents with: Recheck: Follow up Imm/Inj: Flu Vaccine SUBJECTIVE: Rebecca Quarles is a 67 year old year old gentleman here today for 6 month follow up appointment for review of medical conditions. Better eating habits since retired. Will see Dr. Gerber for follow up on minutely grown prostate cancer. Saw Dr. Mariano last Monday. Eye doctor--was told everything fine. Ahead on RXs from [facility]. Still has abnormal growth of right index finger nail where has irritated area on cuticle. Denies symptoms of excessive thirst or increased frequency of urination, chest pain or dyspnea , numbness, tingling or pain in extremities, new or unusual visual symptoms and low sugar/hypoglycemic reactions PAST MEDICAL HISTORY Diagnosis Date - Benign neoplasm of colon - Coronary artery disease - Diverticulosis of colon (without mention of hemorrhage) - External hemorrhoids without mention of complication - Gout, unspecified - Hyperuricemia - Internal hemorrhoids without mention of complication - Macular edema left--[facility] following - Other and unspecified hyperlipidemia - 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 atorvastatin (LIPITOR) 20 mg tablet Take 1 tablet by mouth once daily. lancets (EASY TOUCH TWIST LANCETS) 30 gauge [facility] DM Type II E11.9 Insulin: NO, Test one time a day or as directed metFORMIN ER (GLUCOPHAGE XR) 500 mg 24 hr tablet Take 2 tablets by mouth daily with breakfast. (will let us know when needs next presciption) blood sugar diagnostic (Optisort VERIO) test strip Test blood sugar(s) 1 times daily and as needed. Dx: Type 2 DM - Controlled E11.9 Insulin: No aspirin(MARINA LOW STRENGTH 81 MG TAB) Take one(1) tablet daily. MULTIVITAMIN TAB Take one(1) tablet daily. fish oil/dha/epa(FISH OIL 1,200 MG-144 MG-216 MG CAP) Take one(1) tablet daily in the morning. No current facility-administered medications for this visit. OBJECTIVE: BP 138/66 Pulse 80 Resp 16 Wt 86.2 kg (190 lb) BMI 30.21 kg/m? Patient is alert, oriented times 3, no apparent distress, affect is bright, reactive. Last 5 Encounter BP Readings: Date: BP: 04/27/2018 138/66 10/23/2017 130/62 04/21/2017 130/68 10/13/2016 158/80 09/01/2016 142/66 Last 5 Encounter Wt Readings: Date: Wt: 04/27/2018 86.2 kg (190 lb) 10/23/2017 87.1 kg (192 lb) 04/21/2017 89.4 kg (197 lb) 10/13/2016 94.5 kg (208 lb 6.4 oz) 09/01/2016 95.4 kg (210 lb 6.4 oz) 04/27/18 0940 04/27/18 1022 BP: 138/66 122/58 Pulse: 80 Resp: 16 Weight: 86.2 kg (190 lb) HEENT: NCAT; scleral normal Heart: Regular rate, rhythm, no murmurs, gallops, rubs. Lungs: Clear to auscultation, bilaterally, breathing non labored. Ext: No cyanosis, clubbing, or edema. Abnormal nail noted as in HPI. Component Latest Ref Rng AND Units 04/14/2017 10/16/2017 04/20/2018 Protein, Total 6.3 - 8.0 g/dL 7.6 6.9 Albumin 3.9 - 4.9 g/dL 4.4 4.5 Calcium 8.5 - 10.2 mg/dL 9.8 9.8 Bilirubin, Total 0.2 - 1.3 mg/dL 0.4 0.3 Alkaline Phosphatase 36 - 108 U/L 64 59 AST 14 - 40 U/L 22 20 Glucose 74 - 99 mg/dL 152 (H) 129 (H) BUN 9 - 24 mg/dL 16 19 Creatinine 0.73 - 1.22 mg/dL 1.23 (H) 1.20 Sodium 136 - 144 mmol/L 143 140 Potassium 3.7 - 5.1 mmol/L 4.7 5.0 Chloride 97 - 105 mmol/L 102 102 CO2 22 - 30 mmol/L 29 25 Anion Gap 9 - 18 mmol/L 12 13 ALT 10 - 54 U/L 15 14 eGFR- >60 >60 eGFR-All Other Races . 59 >60 WBC 3.70 - 11.00 k/uL 10.22 RBC 4.20 - 6.00 m/uL 4.61 Hemoglobin 13.0 - 17.0 g/dL 14.8 Hematocrit 39.0 - 51.0 % 44.0 MCV 80.0 - 100.0 fL 95.4 MCH 26.0 - 34.0 pG 32.1 MCHC 30.5 - 36.0 g/dL 33.6 RDW-CV 11.5 - 15.0 % 13.2 Platelet Count 150 - 400 k/uL 258 MPV 9.0 - 12.7 fL 11.2 Absolute nRBC <0.01 k/uL <0.01 Cholesterol, Total <200 mg/dL 176 148 Triglyceride <150 mg/dL 126 98 HDL Cholesterol >39 mg/dL 43 40 LDL Cholesterol <100 mg/dL 108 (H) 88 Non HDL Cholesterol <130 mg/dL 133 (H) 108 Fasting Time hrs 12 12 VLDL Cholesterol <30 mg/dL 25 20 TC:HDL Ratio <5.10 4.09 3.70 LDL:HDL Ratio <2.54 2.51 2.20 Creatinine, Ur Random (UCRR) 20 - 300 mg/dL 224.8 Albumin, Urine Random 0.0 - 23.0 mg/L 117.0 (H) Albumin/Creat Ratio 0 - 30 mg/g 52 (H) Hemoglobin A1C 4.3 - 5.6 % 6.6 (H) 6.2 (H) 6.2 (H) Estimated Average Glucose mg/dL 143 131 131 Hep C Antibody IA Negative Negative Uric Acid 4.0 - 8.1 mg/dL 6.0 6.3 ASSESSMENT AND PLAN: Encounter Diagnosis ICD-10-CM 1. Controlled type 2 diabetes mellitus without complication, unspecified whether shelter insulin use (HCC) E11.9 2. Essential hypertension I10 3. Mixed hyperlipidemia E78.2 4. Gout, unspecified cause, unspecified chronicity, unspecified site M10.9 no bouts lately; none since seeing me (2006) 5. Fingernail abnormalities L60.9 6. Prostate cancer (HCC) C61 7. Need for vaccination Z23 INFLUENZA SEASONAL HIGH DOSE AGE 65+ Above issues addressed with patient. Patient involved in shared decision making for management of medical issues. History and medications reviewed. Epic updated as needed Refills taken care of and meds adjusted as indicated after reviewed history, exam and labs. Health Maintenance reviewed. Updated record and/or ordered tests as recorded. Encouraged on efforts at healthy diet and regular exercise and adequate sleep. Needs to keep working on diet and exercise with lifestyle changes for effective weight loss as well as control of DM, and control of BP and lipids. Discussed issue with fingernail. Treating cuticle issue (like paronchia) to help nail to grow back normally discussed. Further evaluation and treatment as indicated. Will continue to follow up with Dr. Gerber as discussed in HPI. Routine yearly eye exams with Dr. Mariano. The majority of the visit was spent counseling and/or coordinating care for the patient. Bdbm-iq-hscv time was at least 20 minutes. Priscila Abarca MD PROGRESS Observed: 04/27/2018 Status: COMPLETED Source: [place] 9:48 AM [facility] REPOSITORY HNO ID: [id number] Author: Ariella Hayward LPN Service: (none) Author Type: (none) Type: Progress Notes Filed: 05/13/2018 8:47 PM Note Text: 67 year old male here for INACTIVATED INFLUENZA VACCINE. Season Patient is identified by name and date of : Yes [] CONTRAINDICATIONS color enhanced section Age less than 6 months? No Allergy to eggs, chicken, chicken feathers, or chicken dander? No Allergy to thimerosal (a preservative) or formaldehyde, gelatin? No History of severe reaction to any vaccine component or a previous dose of influenza vaccination? No History of Guillain-Embarrass Syndrome within 6 weeks after a previous influenza vaccine? No Patient is not moderately or severely ill? No Current temperature greater or equal to 100.4F? No History of Bone Marrow Transplant prior 6 months or solid organ transplant in the past 3 months ? No History of fainting after a prior injection or medical procedure? No- ? If patient has fainted in the past, the CDC recommends sitting or lying down for 15 minutes after the vaccination. [] VERIFICATION color enhanced section Was the answer Yes for any of the above contraindications? Patient/guardian agrees the above answers are true to the best of their knowledge? Yes Flu vaccine information sheet given? Yes See immunization activity in [facility] for details of immunizations adminstered today. Patient age: [age] year old For The 2961-7028 Flu Season 6-35 months old: Fluzone 0.25 ml - IM (Preservative Free) 3 years of age: Fluzone 0.5 ml - IM (Preservative Free) 3 years and older: Fluzone 0.5 ml- IM-(with Preservatives) 65+ years old: 2-49 years old Fluzone High-Dose 0.5 ml - IM (Preservative Free) FLUMIST- intranasal REMEMBER: If patient is less than 9 years of age and this is the first vaccine of Influenza to be received in any flu season, they should receive a second dose in one months time. CNOV Observed: 04/27/2018 Status: COMPLETED Source: [place] 9:40 AM [facility] REPOSITORY Office Visit (INTMWS) REBECCA QUARLES ([id number]) 1950 M Date Time Provider Department 04/27/18 9:40 AM PRISCILA ABARCA INTMWS During your visit today, we recorded the following information about you: Pulse Respiration Blood pressure Weight 80/minute 16/minute 122/58 86.2 kg Ariella Hayward CHAVA 05/13/2018 8:47 PM Signed 67 year old male here for INACTIVATED INFLUENZA VACCINE. 4917-5094 Season Patient is identified by name and date of : Yes [] CONTRAINDICATIONS color enhanced section Age less than 6 months? No Allergy to eggs, chicken, chicken feathers, or chicken dander? No Allergy to thimerosal (a preservative) or formaldehyde, gelatin? No History of severe reaction to any vaccine component or a previous dose of influenza vaccination? No History of Guillain-Embarrass Syndrome within 6 weeks after a previous influenza vaccine? No Patient is not moderately or severely ill? No Current temperature greater or equal to 100.4F? No History of Bone Marrow Transplant prior 6 months or solid organ transplant in the past 3 months ? No History of fainting after a prior injection or medical procedure? No- ? If patient has fainted in the past, the CDC recommends sitting or lying down for 15 minutes after the vaccination. [] VERIFICATION color enhanced section Was the answer Yes for any of the above contraindications? Patient/guardian agrees the above answers are true to the best of their knowledge? Yes Flu vaccine information sheet given? Yes See immunization activity in [facility] for details of immunizations adminstered today. Patient age: [age] year old For The 2271-4771 Flu Season 6-35 months old: Fluzone 0.25 ml - IM (Preservative Free) 3 years of age: Fluzone 0.5 ml - IM (Preservative Free) 3 years and older: Fluzone 0.5 ml- IM-(with Preservatives) 65+ years old: 2-49 years old Fluzone High-Dose 0.5 ml - IM (Preservative Free) FLUMIST- intranasal REMEMBER: If patient is less than 9 years of age and this is the first vaccine of Influenza to be received in any flu season, they should receive a second dose in one months time. Priscila Abarca MD 05/13/2018 8:47 PM Signed Patient presents with: Recheck: Follow up Imm/Inj: Flu Vaccine SUBJECTIVE: Rebecca Quarles is a 67 year old year old gentleman here today for 6 month follow up appointment for review of medical conditions. Better eating habits since retired. Will see Dr. Gerber for follow up on minutely grown prostate cancer. Saw Dr. Mariano last Monday. Eye doctor--was told everything fine. Ahead on RXs from [facility]. Still has abnormal growth of right index finger nail where has irritated area on cuticle. Denies symptoms of excessive thirst or increased frequency of urination, chest pain or dyspnea , numbness, tingling or pain in extremities, new or unusual visual symptoms and low sugar/hypoglycemic reactions PAST MEDICAL HISTORY Diagnosis Date - Benign neoplasm of colon - Coronary artery disease - Diverticulosis of colon (without mention of hemorrhage) - External hemorrhoids without mention of complication - Gout, unspecified - Hyperuricemia - Internal hemorrhoids without mention of complication - Macular edema left--[facility] following - Other and unspecified hyperlipidemia - 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 atorvastatin (LIPITOR) 20 mg tablet Take 1 tablet by mouth once daily. lancets (EASY TOUCH TWIST LANCETS) 30 gauge [facility] DM Type II E11.9 Insulin: NO, Test one time a day or as directed metFORMIN ER (GLUCOPHAGE XR) 500 mg 24 hr tablet Take 2 tablets by mouth daily with breakfast. (will let us know when needs next presciption) blood sugar diagnostic (Optisort VERIO) test strip Test blood sugar(s) 1 times daily and as needed. Dx: Type 2 DM - Controlled E11.9 Insulin: No aspirin(MARINA LOW STRENGTH 81 MG TAB) Take one(1) tablet daily. MULTIVITAMIN TAB Take one(1) tablet daily. fish oil/dha/epa(FISH OIL 1,200 MG-144 MG-216 MG CAP) Take one(1) tablet daily in the morning. No current facility-administered medications for this visit. OBJECTIVE: BP 138/66 Pulse 80 Resp 16 Wt 86.2 kg (190 lb) BMI 30.21 kg/m? Patient is alert, oriented times 3, no apparent distress, affect is bright, reactive. Last 5 Encounter BP Readings: Date: BP: 04/27/2018 138/66 10/23/2017 130/62 04/21/2017 130/68 10/13/2016 158/80 09/01/2016 142/66 Last 5 Encounter Wt Readings: Date: Wt: 04/27/2018 86.2 kg (190 lb) 10/23/2017 87.1 kg (192 lb) 04/21/2017 89.4 kg (197 lb) 10/13/2016 94.5 kg (208 lb 6.4 oz) 09/01/2016 95.4 kg (210 lb 6.4 oz) 04/27/18 0940 04/27/18 1022 BP: 138/66 122/58 Pulse: 80 Resp: 16 Weight: 86.2 kg (190 lb) HEENT: NCAT; scleral normal Heart: Regular rate, rhythm, no murmurs, gallops, rubs. Lungs: Clear to auscultation, bilaterally, breathing non labored. Ext: No cyanosis, clubbing, or edema. Abnormal nail noted as in HPI. Component Latest Ref Rng AND Units 04/14/2017 10/16/2017 04/20/2018 Protein, Total 6.3 - 8.0 g/dL 7.6 6.9 Albumin 3.9 - 4.9 g/dL 4.4 4.5 Calcium 8.5 - 10.2 mg/dL 9.8 9.8 Bilirubin, Total 0.2 - 1.3 mg/dL 0.4 0.3 Alkaline Phosphatase 36 - 108 U/L 64 59 AST 14 - 40 U/L 22 20 Glucose 74 - 99 mg/dL 152 (H) 129 (H) BUN 9 - 24 mg/dL 16 19 Creatinine 0.73 - 1.22 mg/dL 1.23 (H) 1.20 Sodium 136 - 144 mmol/L 143 140 Potassium 3.7 - 5.1 mmol/L 4.7 5.0 Chloride 97 - 105 mmol/L 102 102 CO2 22 - 30 mmol/L 29 25 Anion Gap 9 - 18 mmol/L 12 13 ALT 10 - 54 U/L 15 14 eGFR- >60 >60 eGFR-All Other Races . 59 >60 WBC 3.70 - 11.00 k/uL 10.22 RBC 4.20 - 6.00 m/uL 4.61 Hemoglobin 13.0 - 17.0 g/dL 14.8 Hematocrit 39.0 - 51.0 % 44.0 MCV 80.0 - 100.0 fL 95.4 MCH 26.0 - 34.0 pG 32.1 MCHC 30.5 - 36.0 g/dL 33.6 RDW-CV 11.5 - 15.0 % 13.2 Platelet Count 150 - 400 k/uL 258 MPV 9.0 - 12.7 fL 11.2 Absolute nRBC <0.01 k/uL <0.01 Cholesterol, Total <200 mg/dL 176 148 Triglyceride <150 mg/dL 126 98 HDL Cholesterol >39 mg/dL 43 40 LDL Cholesterol <100 mg/dL 108 (H) 88 Non HDL Cholesterol <130 mg/dL 133 (H) 108 Fasting Time hrs 12 12 VLDL Cholesterol <30 mg/dL 25 20 TC:HDL Ratio <5.10 4.09 3.70 LDL:HDL Ratio <2.54 2.51 2.20 Creatinine, Ur Random (UCRR) 20 - 300 mg/dL 224.8 Albumin, Urine Random 0.0 - 23.0 mg/L 117.0 (H) Albumin/Creat Ratio 0 - 30 mg/g 52 (H) Hemoglobin A1C 4.3 - 5.6 % 6.6 (H) 6.2 (H) 6.2 (H) Estimated Average Glucose mg/dL 143 131 131 Hep C Antibody IA Negative Negative Uric Acid 4.0 - 8.1 mg/dL 6.0 6.3 ASSESSMENT AND PLAN: Encounter Diagnosis ICD-10-CM 1. Controlled type 2 diabetes mellitus without complication, unspecified whether shelter insulin use (HCC) E11.9 2. Essential hypertension I10 3. Mixed hyperlipidemia E78.2 4. Gout, unspecified cause, unspecified chronicity, unspecified site M10.9 no bouts lately; none since seeing me (2006) 5. Fingernail abnormalities L60.9 6. Prostate cancer (HCC) C61 7. Need for vaccination Z23 INFLUENZA SEASONAL HIGH DOSE AGE 65+ Above issues addressed with patient. Patient involved in shared decision making for management of medical issues. History and medications reviewed. Epic updated as needed Refills taken care of and meds adjusted as indicated after reviewed history, exam and labs. Health Maintenance reviewed. Updated record and/or ordered tests as recorded. Encouraged on efforts at healthy diet and regular exercise and adequate sleep. Needs to keep working on diet and exercise with lifestyle changes for effective weight loss as well as control of DM, and control of BP and lipids. Discussed issue with fingernail. Treating cuticle issue (like paronchia) to help nail to grow back normally discussed. Further evaluation and treatment as indicated. Will continue to follow up with Dr. Gerber as discussed in HPI. Routine yearly eye exams with Dr. Mariano. The majority of the visit was spent counseling and/or coordinating care for the patient. Dsqv-gg-wvrm time was at least 20 minutes. MD Priscila Magallon MD 04/27/2018 10:19 AM Signed Bacitracin ointment for bacterial infections along the nail cuticle Lamisil or miconazole for possible fungal infections. For inflammation--can try cortizone or Cortaid (hydrocortisone) cream or ointment can help Referring Provider: SELF [200] Allergies As of Date: 04/27/2018 (No Known Allergies) Date Reviewed: 04/27/2018 Reviewed by: Ariella Hayward LPN - Fully Assessed Reason for Visit: Recheck [92] Cmt: Follow up Imm/Inj [58] Cmt: Flu Vaccine Reason For Visit History Recorded Primary Visit Diagnosis:Controlled type 2 diabetes mellitus without complication, unspecified whether shelter insulin use (HCC) [E11.9] Other Visit Diagnoses:Essential hypertension [I10] Mixed hyperlipidemia [E78.2] Gout, unspecified cause, unspecified chronicity, unspecified site [M10.9] Comment:no bouts lately; none since seeing me (2006) Fingernail abnormalities [L60.9] Prostate cancer (HCC) [C61] Need for vaccination [Z23] Order(s):INFLUENZA SEASONAL HIGH DOSE AGE 65+ [[id number]] Order #: [id number] COMP METABOLIC PANEL [SQCMP] Order #: [id number] FUTURE HGB A1C [TEUZS2P] Order #: [id number] FUTURE CBC [SQCBC] Order #: [id number] FUTURE LIPID PANEL BASIC [SQLIPB] Order #: [id number] FUTURE ALBUMIN/CREAT RATIO RND UR [SQUACR] Order #: [id number] FUTURE URIC ACID BLOOD [SQURIC] Order #: [id number] FUTURE Prescriptions as of 04/27/2018 Sig: ALLOPURINOL 100 MG TABLET TAKE 1 TABLET BY MOUTH ONCE D* LISINOPRIL 20 MG TABLET Take 1 tablet by mouth once d* ATORVASTATIN 20 MG TABLET Take 1 tablet by mouth once d* LANCETS 30 GAUGE DM Type II E11.9 Insulin: NO,* METFORMIN ER 500 MG TABLET,EX* Take 2 tablets by mouth daily* BLOOD SUGAR DIAGNOSTIC STRIPS Test blood sugar(s) 1 times d* ADULT LOW STRENGTH 81 MG TABL* Take one(1) tablet daily. MULTIVITAMIN TABLET Take one(1) tablet daily. FISH OIL 1,200 MG-144 MG-216 * Take one(1) tablet daily in t* Problem List As Of Date 04/27/2018 Noted Resolved Essential hypertension [I10] INVALID FOR* Hyperlipidemia [E78.5] INVALID FOR* GOUT NOS [M10.9] Other specified abnormal findings of blood chem* Diabetes mellitus type 2, controlled, without c*INVALID FOR* Patellofemoral syndrome [M22.40] INVALID FOR* SCREENING MAL NEOP-COLON [Z12.11] INVALID FOR* BENIGN NEOPLASM LG BOWEL [D12.6] INVALID FOR* DIVERTICULOSIS OF COLON W/O BLEED [K57.30] INVALID FOR* INT HEMORRHOID W/O COMPL [K64.8] INVALID FOR* EXT HEMORRHOID W/O COMPL [K64.4] INVALID FOR* Type 2 diabetes mellitus with mild nonprolifera* 10/23/2017 Elevated prostate specific antigen (PSA) [R97.2*INVALID FOR* Benign non-nodular prostatic hyperplasia withou*INVALID FOR* Prostate cancer (HCC) [C61] INVALID FOR* Controlled type 2 diabetes mellitus without com*INVALID FOR* More... Other instructions from your clinician: Bacitracin ointment for bacterial infections along the nail cuticle Lamisil or miconazole for possible fungal infections. For inflammation--can try cortizone or Cortaid (hydrocortisone) cream or ointment can help Disposition: Return in about 6 months (around 10/25/2018) for 6 months follow up. Follow-up and Disposition History Recorded Encounter Status:Closed by PRISCILA ABARCA MD on 05/13/18 PSA,TOTAL- DIAGNOSTIC Collected: 04/23/2018 Status: F Source: [place] 12:55 PM [facility] REPOSITORY TYPE CODE TESTS RESULT OUT OF REFERENCE UNITS RANGE LAB L501.9940 0.0-4.0 ng/mL PSA, High DIAGNOSTIC 4.19 Result Comment: This test was performed using the TPSA assay method for the [employer] chemistry system. Values obtained with different assay methods cannot be used interchangably. When changing PSA assays in the course of monitoring a patient, additional sequential testing should be carried out to confirm baseline values. Performed By: #### L501.9940 #### [facility] [address] [place], [address] HEMOGLOBIN A1C Collected: 04/20/2018 Status: F Source: [place] 7:51 AM [facility] REPOSITORY TYPE CODE TESTS RESULT OUT OF REFERENCE UNITS RANGE LAB HGBA1C 4.3-5.6 % High Hemoglobin A1c 6.2 LAB HBA0 mg/dL Est. Average Glucose 131 Result Comment: eAG: (Estimated average glucose) is a calculated value from HgbA1c and is employment program representative of the average blood glucose level in the last 2-3 month period. Performed By: #### HBA1C, CMP, LIPB, URIC #### [facility] [address] [place] [id number] COMP METABOLIC PANEL Collected: 04/20/2018 Status: F Source: [place] 7:51 AM [facility] REPOSITORY TYPE CODE TESTS RESULT OUT OF REFERENCE UNITS RANGE LAB TP 6.3-8.0 g/dL Protein, Total 6.9 LAB ALB 3.9-4.9 g/dL Albumin 4.5 LAB CA 8.5-10.2 mg/dL Calcium, Total 9.8 LAB TBIL 0.2-1.3 mg/dL Bilirubin, Total 0.3 LAB ALKP 36-108 U/L Alkaline Phosphatase 59 LAB AST 14-40 U/L AST 20 LAB GLU 74-99 mg/dL Glucose High 129 Result Comment: The [place] [employer] (ADA) provides guidance for cutoff values for fasting glucose and random glucose. The ADA defines fasting as no caloric intake for at least 8 hours. Fas ting plasma glucose results between 100 to 125 mg/dL indicate increased risk for diabetes (prediabetes). Fasting plasma glucose results greater than or equal to 126 mg/dL meet the criteria for diagnosis of diabetes. In the absence of unequivocal hyperglycemia, results should be confirmed by repeat testing. In a patient with classic symptoms of hyperglycemia or hyperglycemic crisis, random plasma glucose results greater than or equal to 200 mg/dL meet the criteria for diagnosis of diabetes. Reference: Standards of Medical Care in Diabetes 2016, [place] [employer]. Diabetes Care. 2016.39(Suppl 1). LAB BUN 9-24 mg/dL BUN 19 LAB CRET 0.73-1.22 mg/dL Creatinine 1.20 LAB NA 136-144 mmol/L Sodium 140 LAB K 3.7-5.1 mmol/L Potassium 5.0 LAB CL 97-105 mmol/L Chloride 102 LAB CO2 22-30 mmol/L CO2 25 LAB AGAP 9-18 mmol/L Anion Gap 13 LAB ALT 10-54 U/L ALT 14 LAB GFRAA eGFR- Amer. >60 LAB GFRNAA . eGFR-All Other Races >60 Result Comment: eGFR (Estimated GFR) Units of measure: mL/min/1.73 meters squared eGFR is derived from the reexpressed MDRD Study equation using the following parameters: serum creatinine, age, gender and race. The creatinine assay has been calibrated to be traceable to IDMS. An eGFR <60 mL/min/1.73m2 for >3 months is consistent with chronic kidney disease. Refer to KDOQI guidelines for clinical interpretation. In patients with unstable renal function, e.g. those with acute kidney injury, the eGFR may not accurately reflect actual GFR. Performed By: #### HBA1C, CMP, LIPB, URIC #### [facility] [address] [place], [place] [address] LIPID PANEL, BASIC Collected: 04/20/2018 Status: F Source: [place] 7:51 AM [facility] REPOSITORY TYPE CODE TESTS RESULT OUT OF REFERENCE UNITS RANGE LAB CHOL <200 mg/dL Cholesterol 148 Result Comment: <200 mg/dL, Desirable 200-239 mg/dL, Borderline high >239 mg/dL, High LAB TRIGLY <150 mg/dL Triglyceride 98 Result Comment: <150 mg/dL, Normal 150-199 mg/dL, Borderline high 200-499 mg/dL, High >499 mg/dL, Very high LAB HDL >39 mg/dL HDL-Cholesterol 40 Result Comment: 40-59 mg/dL, Acceptable >59 mg/dL, High: Negative risk factor for coronary heart disease <40 mg/dL, Low: Positive risk factor for coronary heart disease LAB LDL <100 mg/dL LDL-Cholesterol 88 Result Comment: <100 mg/dL, Optimal 100-129 mg/dL, Near optimal/above optimal 130-159 mg/dL, Borderline high 160-189 mg/dL, High >189 mg/dL, Very high Secondary prevention optimal LDL Cholesterol levels are recommended to be < 70 mg/dL LAB NONHDL <130 mg/dL Non HDL Cholesterol 108 Result Comment: <130 mg/dL, Optimal 130-159 mg/dL, Near optimal/above optimal 160-189 mg/dL, Borderline high 190-219 mg/dL, High >219 mg/dL, Very high Secondary prevention optimal non HDL Cholesterol levels are recommended to be < 100 mg/dL LAB FT hrs Fasting Time 12 LAB VLDL <30 mg/dL VLDL Cholesterol 20 LAB TCHDL <5.10 TC:HDL Ratio 3.70 LAB LDLHDL <2.54 LDL:HDL Ratio 2.20 Result Comment: Reference: 1. National Cholesterol Education Program ATP III Guideline At-A-Glance Quick Desk Reference: National Heart, Lung, and Blood [place]. National Institutes of Health. 2001: NIH Publication No. 01-3305. 2. An International Atherosclerosis Society position paper: global recommendations for the management of dyslipidemia: executive summary, Atherosclerosis. 2014: 232(2):410-413. Performed By: #### HBA1C, CMP, LIPB, URIC #### [facility] [facility] [address] [place], [place] [address] URIC ACID Collected: 04/20/2018 Status: F Source: [place] 7:51 AM [facility] REPOSITORY TYPE CODE TESTS RESULT OUT OF RANGE REFERENCE UNITS LAB URIC 4.0-8.1 mg/dL Uric Acid 6.3 Performed By: #### HBA1C, CMP, LIPB, URIC #### [facility] [facility] [address] [place], [place] [id number] PROSTATE BIOPSY Observed: 03/05/2018 Status: F Source: [facility] 8:00 AM [facility] REPOSITORY Patient: REBECCA QUARLES : 1950 (67/M) Acct Num: [id number] Phys: Zabrina LOPEZ,John Unit Num: [id number] Loc: LABSPEC Specimen: [id number] Received: 03/05/181655 Spec Type: PROST BX TISSUES TISSUES: A. PROSTATE RIGHT B. PROSTATE RIGHT C. PROSTATE RIGHT D. PROSTATE LEFT E. PROSTATE LEFT F. PROSTATE LEFT ADDENDUM Addendum Number 1 An order for Oncotype testing was received from Dr. Gerber. This necessitated case review, block and slide selection by pathologist at [facility]. Genomic Prostate Score = 28 Results of the complete Oncotype testing (Genomic [email or web address] report) are viewable in EMR under: Reports - Pathology - Lab Pathology Report, Scanned. Addendum Signed Cruz Miles 04/10/18 <signature on file> COMMENT F. Immunohistochemistry ([id number]) supports the above diagnosis. GROSS DESCRIPTION A - Received is one container designated prostate, right apex. The specimen consists of three elongated fragments of light kelsey-white soft tissue measuring 0.3 to 1.2 cm in length and 0.1 cm in diameter. The specimen is totally submitted in one cassette. B - Received is one container designated prostate, right mid. The specimen consists of two elongated fragments of light kelsey-white soft tissue each measuring 1.6 cm in length and 0.1 cm in diameter. The specimen is totally submitted in one cassette. C - Received is one container designated prostate, right base. The specimen consists of two elongated fragments of light kelsey-white soft tissue measuring 1 and 1.5 cm in length and 0.1 cm in diameter. The specimen is totally submitted in one cassette. D - Received is one container designated prostate, left apex. The specimen consists of three elongated fragments of light kelsey-white soft tissue measuring 0.3 to 1.5 cm in length and 0.1 cm in diameter. The specimen is totally submitted in one cassette. E - Received is one container designated prostate, left mid. The specimen consists of two elongated fragments of light kelsey-white soft tissue measuring 1 and 1.5 cm in length and 0.1 cm in diameter. The specimen is totally submitted in one cassette. F - Received is one container designated prostate, left base. The specimen consists of three elongated fragments of light kelsey-white soft tissue measuring 0.6 to 1.5 cm in length and 0.1 cm in diameter. The specimen is totally submitted in one cassette. / TREY:shahab 03/06/18 TC:0 CPT: G0146 HEADER OPERATION: Prostate biopsy PRE-OP DIAGNOSIS: Elevated PSA TISSUE SUBMITTED: A - Right apex, B - Right mid, C - Right base, D - Left apex, E - Left mid, F - Left base MICROSCOPIC DESCRIPTION Slides are reviewed. MICROSCOPIC DIAGNOSIS A. Right prostate, apex, core biopsy: Prostatic tissue, negative for malignancy. Focal atrophy. B. Right prostate, mid, core biopsy: Prostatic adenocarcinoma: Meagan grade: 3+4=7 Number of cores involved: 2 out of 2 Proportion of tissue involved: ~25% Perineural invasion: Not identified. Greatest tumor length: 0.5 cm, discontinuous C. Right prostate, base, core biopsy: Prostatic tissue, negative for malignancy. D. Left prostate, apex, core biopsy: Prostatic adenocarcinoma: Meagan grade: 3+3=6 Number of cores involved: 1 out of 3 Proportion of tissue involved: ~15% Perineural invasion: Not identified. Greatest tumor length: 0.3 cm E. Left prostate, mid, core biopsy: Prostatic tissue, negative for malignancy. F. Left prostate, base, core biopsy: Prostatic adenocarcinoma: Meagan grade: 3+3=6 Number of cores involved: 1 out of 3 Proportion of tissue involved: ~5% Perineural invasion: Not identified. Greatest tumor length: 0.1 cm See comment. SJ:shahab 03/07/18 Signed Cruz Miles 03/08/18 <signature on file> Performed By: #### PPROSBIL #### [facility] [address] [place] [address]. [place], [address] IMMUNOHISTOCHEMISTRY Observed: 03/05/2018 Status: F Source: [place] 12:00 AM [facility] REPOSITORY Patient: REBECCA QUARLES : 1950 (67/M) Acct Num: [id number] Phys: Zabrina LOPEZ,Mauro Vicente Unit Num: [id number] Loc: LABSPEC Specimen: [id number] Received: 03/07/181120 Spec Type: IMMUNO TISSUES TISSUES: F. PROSTATE LEFT SPECIMEN INFORMATION: Tissue Source: F - Left prostate, base, core biopsy Clinical Info: Elevated PSA Specimen Number: [id number] CPT code: 89804, 89923 METHODOLOGY: Deparaffinized sections of prefer/formalin-fixed tissue or PAP/DQ stained slides are incubated with monoclonal/polyclonal antibodies/oligonucleotide probes. Localization is made via biotin free immunoperoxidase method. Appropriate controls are performed and reacted as expected. Results on target cell population are indicated in the following table: RESULTS: ANTIBODY / CLONE RESULT Block F P40 (BC28) negative 34BE12 (34BE12) negative These tests were developed and their performance characteristics determined by [facility]. They may not have been cleared or approved by the U.S. Food and Drug Administration. The FDA has determined that such clearance or approval is not necessary. INTERPRETATION: F. Left prostate, base, core biopsy: Adenocarcinoma. SJ:shahab 03/08/18 PHYSICIAN AND INSTITUTION [address] [address] Signed Cruz Miles 03/08/18 <signature on file> Performed By: #### PIMM #### [facility] [address] [place] [address]. [place], [address] PSA,TOTAL- DIAGNOSTIC Collected: 02/13/2018 Status: F Source: [place] 10:47 AM [facility] REPOSITORY TYPE CODE TESTS RESULT OUT OF REFERENCE UNITS RANGE LAB L501.9940 0.0-4.0 ng/mL PSA, High DIAGNOSTIC 4.68 Result Comment: This test was performed using the TPSA assay method for the [employer] chemistry system. Values obtained with different assay methods cannot be used interchangably. When changing PSA assays in the course of monitoring a patient, additional sequential testing should be carried out to confirm baseline values. Performed By: #### [id number] #### [facility] [address] [place] [address]. [place], [address] PROGRESS Observed: 10/23/2017 Status: COMPLETED Source: [place] 10:41 AM [facility] REPOSITORY HNO ID: [id number] Author: Priscila Abarca Service: (none) Author Type: Physician Type: Progress Notes Filed: 10/23/2017 7:45 PM Note Text: Patient presents with: Recheck SUBJECTIVE: Rebecca Quarles is a 67 year old year old gentleman here today for 6 month follow up appointment for review of medical conditions. Noted right index fingernail affected by inflammation at base--looks like might have jhad infection (noted no more pus being expressed the past month). Intermitteet episode of inflammation. Cuticle with get red and swollen. Waves like noted on nail, Eating healthier since retired. Down to 188 pounds at home. Less stress since retired. Does note that could do better with drinking water. 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 blood sugar diagnostic (ONETOUCH VERIO) test strip Test blood sugar(s) 1 times daily and as needed. Dx: Type 2 DM - Controlled E11.9 Insulin: No blood sugar diagnostic (BLOOD GLUCOSE TEST) test strip Test blood sugar(s) once daily.Dx: E11.9 Controlled type 2 DM without complications and without long-term insulin use. Using verio strips lisinopril (ZESTRIL, PRINIVIL) 20 mg tablet Take 1 tablet by mouth once daily. atorvastatin (LIPITOR) 20 mg tablet Take 1 tablet by mouth once daily. metFORMIN ER (GLUCOPHAGE XR) 500 mg 24 hr tablet Take 2 tablets by mouth daily with breakfast. (will let us know when needs next presciption) lancets (EASY TOUCH TWIST LANCETS) 30 gauge [facility] DM Type II E11.9 Insulin: NO, Test one time a day or as directed fish oil/dha/epa(FISH OIL 1,200 MG-144 MG-216 MG CAP) Take one(1) tablet daily in the morning. aspirin(MARINA LOW STRENGTH 81 MG TAB) Take one(1) tablet daily. MULTIVITAMIN TAB Take one(1) tablet daily. No current facility-administered medications for this visit. Social History Marital status: Spouse name: Years of education: Number of children: Social History Main Topics Smoking status: Current Every Day Smoker Packs/day: 1.50 Years: 30.00 Types: Cigarettes Smokeless status: Never Used Comment: Down to 1 PPD Alcohol use: Yes 36.0 oz/week 24 Cans of Beer (12oz) per week Drug use: No Sexual activity: Yes Partners with: Female OBJECTIVE: BP 130/62 Pulse 82 Resp 16 Wt 87.1 kg (192 lb) BMI 30.53 kg/m2 Patient is alert, oriented times 3, no apparent distress, affect is bright, reactive. Last 5 Encounter BP Readings: Date: BP: 10/23/2017 130/62 04/21/2017 130/68 10/13/2016 158/80 09/01/2016 142/66 08/23/2016 162/94[following a biopsy-patient will keep eye on his B/P's[ Last 5 Encounter Wt Readings: Date: Wt: 10/23/2017 87.1 kg (192 lb) 04/21/2017 89.4 kg (197 lb) 10/13/2016 94.5 kg (208 lb 6.4 oz) 09/01/2016 95.4 kg (210 lb 6.4 oz) 08/23/2016 94.1 kg (207 lb 6.4 oz) Heart: Regular rate, rhythm, no murmurs, gallops, rubs. Lungs: Clear to auscultation, bilaterally, breathing non labored. Ext: No cyanosis, clubbing, or edema. Abnormal index fingernail right hand (looks like waves where nail seemed to thin and then thicken then think again,etc); cuticle with some redness consistent with prior inflammation, maybe infection. No tenderness or purulent drainage with palpation. Component Latest Ref Rng AND Units 05/27/2016 06/02/2016 04/14/2017 10/16/2017 Protein, Total 6.3 - 8.0 g/dL 7.6 Albumin 3.9 - 4.9 g/dL 4.4 Calcium 8.5 - 10.2 mg/dL 9.8 9.8 Bilirubin, Total 0.2 - 1.3 mg/dL 0.4 Alkaline Phosphatase 36 - 108 U/L 64 AST 14 - 40 U/L 22 Glucose 74 - 99 mg/dL 168 (H) 152 (H) BUN 9 - 24 mg/dL 17 16 Creatinine 0.73 - 1.22 mg/dL 1.24 (H) 1.23 (H) Sodium 136 - 144 mmol/L 139 143 Potassium 3.7 - 5.1 mmol/L 4.8 4.7 Chloride 97 - 105 mmol/L 99 102 CO2 22 - 30 mmol/L 27 29 Anion Gap 9 - 18 mmol/L 13 12 ALT 10 - 54 U/L 15 eGFR- >60 >60 eGFR-All Other Races . 59 59 WBC 3.70 - 11.00 k/uL 10.22 RBC 4.20 - 6.00 m/uL 4.61 Hemoglobin 13.0 - 17.0 g/dL 14.8 Hematocrit 39.0 - 51.0 % 44.0 MCV 80.0 - 100.0 fL 95.4 MCH 26.0 - 34.0 pG 32.1 MCHC 30.5 - 36.0 g/dL 33.6 RDW-CV 11.5 - 15.0 % 13.2 Platelet Count 150 - 400 k/uL 258 MPV 9.0 - 12.7 fL 11.2 Absolute nRBC <0.01 k/uL <0.01 Triglyceride <150 mg/dL 145 126 Cholesterol, Total <200 mg/dL 185 176 HDL Cholesterol >39 mg/dL 40 (L) 43 VLDL Cholesterol <30 mg/dL 29 25 LDL Cholesterol <100 mg/dL 116 108 (H) Fasting Time hrs 12 12 TC:HDL Ratio <5.10 4.63 4.09 LDL:HDL Ratio <2.54 2.90 2.51 Non HDL Cholesterol <130 mg/dL 145 133 (H) Creatinine, Ur Random (UCRR) 20 - 300 mg/dL 126.0 224.8 Albumin, Urine Random 0.0 - 23.0 mg/L 42.6 (H) 117.0 (H) Albumin/Creat Ratio 0 - 30 mg/g 34 (H) 52 (H) Hemoglobin A1C 4.3 - 5.6 % 7.2 (H) 6.6 (H) 6.2 (H) Estimated Average Glucose mg/dL 160 143 131 PSA 0.00 - 2.59 ng/mL 3.95 (H) PSA, Percent Free % 16 PSA Screening 0.00 - 2.59 ng/mL 3.98 (H) Hep C Antibody IA Negative Negative Uric Acid 4.0 - 8.1 mg/dL 6.0 ASSESSMENT AND PLAN: Encounter Diagnosis ICD-10-CM 1. Controlled type 2 diabetes mellitus without complication, unspecified shelter insulin use status (HCC) E11.9 HGB A1C COMP METABOLIC PANEL no DM changes seen on last eye appointment 2. Essential hypertension I10 COMP METABOLIC PANEL 3. Mixed hyperlipidemia E78.2 LIPID PANEL BASIC 4. Gout, unspecified cause, unspecified chronicity, unspecified site M10.9 URIC ACID BLOOD no bouts of gout on allopurinol 5. Hyperuricemia E79.0 6. Smoker F17.200 Above issues addressed with patient. Patient involved in shared decision making for management of her medical issues. History and medications reviewed. Epic updated as needed Refills taken care of and meds adjusted as indicated after reviewed history, exam and labs. Health Maintenance reviewed. Updated record and/or ordered tests as recorded. Encouraged on efforts at healthy diet and regular exercise and adequate sleep. Needs to keep working on diet and exercise with lifestyle changes for effective weight loss and DM control. Noted progress note from retinal specialist did not mention DM changes. he is doing okay after problems with retinal detachment. Stable on current meds. Sugars controlled. Losing weight since retired and less stress. Eating well. No gout episodes. LDL close to ideal goal. Continue present management. Further evaluation and treatment as indicated. The majority of the visit was spent counseling and/or coordinating care for the patient. [id number]-vv-[id number] time was at least 25 minutes. Priscila Abarca MD CNOV Observed: 10/23/2017 Status: COMPLETED Source: [place] 10:20 AM [facility] REPOSITORY Office Visit (INTMWS) REBECCA QUARLES ([id number]) 1950 M Date Time Provider Department 10/23/17 10:20 AM PRISCILA ABARCA INTMWS During your visit today, we recorded the following information about you: Pulse Respiration Blood pressure Weight 82/minute 16/minute 130/62 87.1 kg Priscila Abarca MD 10/23/2017 7:45 PM Signed Patient presents with: Recheck SUBJECTIVE: Rebecca Eagle Willam is a 67 year old year old gentleman here today for 6 month follow up appointment for review of medical conditions. Noted right index fingernail affected by inflammation at base--looks like might have jhad infection (noted no more pus being expressed the past month). Intermitteet episode of inflammation. Cuticle with get red and swollen. Waves like noted on nail, Eating healthier since retired. Down to 188 pounds at home. Less stress since retired. Does note that could do better with drinking water. 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 blood sugar diagnostic (ONETOUCH VERIO) test strip Test blood sugar(s) 1 times daily and as needed. Dx: Type 2 DM - Controlled E11.9 Insulin: No blood sugar diagnostic (BLOOD GLUCOSE TEST) test strip Test blood sugar(s) once daily.Dx: E11.9 Controlled type 2 DM without complications and without long-term insulin use. Using verio strips lisinopril (ZESTRIL, PRINIVIL) 20 mg tablet Take 1 tablet by mouth once daily. atorvastatin (LIPITOR) 20 mg tablet Take 1 tablet by mouth once daily. metFORMIN ER (GLUCOPHAGE XR) 500 mg 24 hr tablet Take 2 tablets by mouth daily with breakfast. (will let us know when needs next presciption) lancets (EASY TOUCH TWIST LANCETS) 30 gauge [facility] DM Type II E11.9 Insulin: NO, Test one time a day or as directed fish oil/dha/epa(FISH OIL 1,200 MG-144 MG-216 MG CAP) Take one(1) tablet daily in the morning. aspirin(MARINA LOW STRENGTH 81 MG TAB) Take one(1) tablet daily. MULTIVITAMIN TAB Take one(1) tablet daily. No current facility-administered medications for this visit. Social History Marital status: Spouse name: Years of education: Number of children: Social History Main Topics Smoking status: Current Every Day Smoker Packs/day: 1.50 Years: 30.00 Types: Cigarettes Smokeless status: Never Used Comment: Down to 1 PPD Alcohol use: Yes 36.0 oz/week 24 Cans of Beer (12oz) per week Drug use: No Sexual activity: Yes Partners with: Female OBJECTIVE: BP 130/62 Pulse 82 Resp 16 Wt 87.1 kg (192 lb) BMI 30.53 kg/m2 Patient is alert, oriented times 3, no apparent distress, affect is bright, reactive. Last 5 Encounter BP Readings: Date: BP: 10/23/2017 130/62 04/21/2017 130/68 10/13/2016 158/80 09/01/2016 142/66 08/23/2016 162/94[following a biopsy-patient will keep eye on his B/P's[ Last 5 Encounter Wt Readings: Date: Wt: 10/23/2017 87.1 kg (192 lb) 04/21/2017 89.4 kg (197 lb) 10/13/2016 94.5 kg (208 lb 6.4 oz) 09/01/2016 95.4 kg (210 lb 6.4 oz) 08/23/2016 94.1 kg (207 lb 6.4 oz) Heart: Regular rate, rhythm, no murmurs, gallops, rubs. Lungs: Clear to auscultation, bilaterally, breathing non labored. Ext: No cyanosis, clubbing, or edema. Abnormal index fingernail right hand (looks like ANDquot;wavesANDquot; where nail seemed to thin and then thicken then think again,etc); cuticle with some redness consistent with prior inflammation, maybe infection. No tenderness or purulent drainage with palpation. Component Latest Ref Rng ANDamp; Units 05/27/2016 06/02/2016 04/14/2017 10/16/2017 Protein, Total 6.3 - 8.0 g/dL 7.6 Albumin 3.9 - 4.9 g/dL 4.4 Calcium 8.5 - 10.2 mg/dL 9.8 9.8 Bilirubin, Total 0.2 - 1.3 mg/dL 0.4 Alkaline Phosphatase 36 - 108 U/L 64 AST 14 - 40 U/L 22 Glucose 74 - 99 mg/dL 168 (H) 152 (H) BUN 9 - 24 mg/dL 17 16 Creatinine 0.73 - 1.22 mg/dL 1.24 (H) 1.23 (H) Sodium 136 - 144 mmol/L 139 143 Potassium 3.7 - 5.1 mmol/L 4.8 4.7 Chloride 97 - 105 mmol/L 99 102 CO2 22 - 30 mmol/L 27 29 Anion Gap 9 - 18 mmol/L 13 12 ALT 10 - 54 U/L 15 eGFR- ANDgt;60 ANDgt;60 eGFR-All Other Races . 59 59 WBC 3.70 - 11.00 k/uL 10.22 RBC 4.20 - 6.00 m/uL 4.61 Hemoglobin 13.0 - 17.0 g/dL 14.8 Hematocrit 39.0 - 51.0 % 44.0 MCV 80.0 - 100.0 fL 95.4 MCH 26.0 - 34.0 pG 32.1 MCHC 30.5 - 36.0 g/dL 33.6 RDW-CV 11.5 - 15.0 % 13.2 Platelet Count 150 - 400 k/uL 258 MPV 9.0 - 12.7 fL 11.2 Absolute nRBC ANDlt;0.01 k/uL ANDlt;0.01 Triglyceride ANDlt;150 mg/dL 145 126 Cholesterol, Total ANDlt;200 mg/dL 185 176 HDL Cholesterol ANDgt;39 mg/dL 40 (L) 43 VLDL Cholesterol ANDlt;30 mg/dL 29 25 LDL Cholesterol ANDlt;100 mg/dL 116 108 (H) Fasting Time hrs 12 12 TC:HDL Ratio ANDlt;5.10 4.63 4.09 LDL:HDL Ratio ANDlt;2.54 2.90 2.51 Non HDL Cholesterol ANDlt;130 mg/dL 145 133 (H) Creatinine, Ur Random (UCRR) 20 - 300 mg/dL 126.0 224.8 Albumin, Urine Random 0.0 - 23.0 mg/L 42.6 (H) 117.0 (H) Albumin/Creat Ratio 0 - 30 mg/g 34 (H) 52 (H) Hemoglobin A1C 4.3 - 5.6 % 7.2 (H) 6.6 (H) 6.2 (H) Estimated Average Glucose mg/dL 160 143 131 PSA 0.00 - 2.59 ng/mL 3.95 (H) PSA, Percent Free % 16 PSA Screening 0.00 - 2.59 ng/mL 3.98 (H) Hep C Antibody IA Negative Negative Uric Acid 4.0 - 8.1 mg/dL 6.0 ASSESSMENT AND PLAN: Encounter Diagnosis ICD-10-CM 1. 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 Essential hypertension I10 COMP METABOLIC PANEL 3. Mixed hyperlipidemia E78.2 LIPID PANEL BASIC 4. Gout, unspecified cause, unspecified chronicity, unspecified site M10.9 URIC ACID BLOOD no bouts of gout on allopurinol 5. Hyperuricemia E79.0 6. Smoker F17.200 Above issues addressed with patient. Patient involved in shared decision making for management of her medical issues. History and medications reviewed. Epic updated as needed Refills taken care of and meds adjusted as indicated after reviewed history, exam and labs. Health Maintenance reviewed. Updated record and/or ordered tests as recorded. Encouraged on efforts at healthy diet and regular exercise and adequate sleep. Needs to keep working on diet and exercise with lifestyle changes for effective weight loss and DM control. Noted progress note from retinal specialist did not mention DM changes. he is doing okay after problems with retinal detachment. Stable on current meds. Sugars controlled. Losing weight since retired and less stress. Eating well. No gout episodes. LDL close to ideal goal. Continue present management. Further evaluation and treatment as indicated. The majority of the visit was spent counseling and/or coordinating care for the patient. Gbmq-ff-[id number] time was at least 25 minutes. 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) [E11.9] Comment:no DM changes seen on last eye appointment Other Visit Diagnoses:Essential hypertension [I10] Mixed hyperlipidemia [E78.2] Gout, unspecified cause, unspecified chronicity, unspecified site [M10.9] Comment:no bouts of gout on allopurinol Hyperuricemia [E79.0] Smoker [F17.200] Order(s):HGB A1C [XNWMR9U] Order #: [id number] FUTURE LIPID PANEL BASIC [SQLIPB] Order #: [id number] FUTURE COMP METABOLIC PANEL [SQCMP] Order #: [id number] FUTURE URIC ACID BLOOD [SQURIC] Order #: [id number] FUTURE Prescriptions as of 10/23/2017 Sig: ALLOPURINOL 100 MG TABLET Take 1 tablet by mouth once d* BLOOD SUGAR DIAGNOSTIC STRIPS Test blood sugar(s) 1 times d* LISINOPRIL 20 MG TABLET Take 1 tablet by mouth once d* ATORVASTATIN 20 MG TABLET Take 1 tablet by mouth once d* METFORMIN ER 500 MG TABLET,EX* Take 2 tablets by mouth daily* LANCETS 30 GAUGE DM Type II E11.9 Insulin: NO,* FISH OIL 1,200 MG-144 MG-216 * Take one(1) tablet daily in t* ADULT LOW STRENGTH 81 MG TABL* Take one(1) tablet daily. MULTIVITAMIN TABLET Take one(1) tablet daily. Problem List As Of Date 10/23/2017 Noted Resolved Essential hypertension [I10] INVALID FOR* Hyperlipidemia [E78.5] INVALID FOR* GOUT NOS [M10.9] Other specified abnormal findings of blood chem* Diabetes mellitus type 2, controlled, without c*INVALID FOR* Patellofemoral syndrome [M22.40] INVALID FOR* SCREENING MAL NEOP-COLON [Z12.11] INVALID FOR* BENIGN NEOPLASM LG BOWEL [D12.6] INVALID FOR* DIVERTICULOSIS OF COLON W/O BLEED [K57.30] INVALID FOR* INT HEMORRHOID W/O COMPL [K64.8] INVALID FOR* EXT HEMORRHOID W/O COMPL [K64.4] INVALID FOR* Type 2 diabetes mellitus with mild nonprolifera* 10/23/2017 Elevated prostate specific antigen (PSA) [R97.2*INVALID FOR* Benign non-nodular prostatic hyperplasia withou*INVALID FOR* Prostate cancer (HCC) [C61] INVALID FOR* Controlled type 2 diabetes mellitus without com*INVALID FOR* More... Medications Discontinued During This Encounter blood sugar diagnostic (BLOOD GLUCOS* 50 S* 11 05/04/2017 10/23/2017 Sig: Test blood sugar(s) once daily.Dx: E11.9 Controlled type 2 DM without complications and without long-term insulin use. Using verio strips Disc: Reason for discontinue is not on file. Disposition: Return in about 6 months (around 04/25/2018) for With labs prior. Follow-up and Disposition History Recorded Encounter Status:Closed by PRISCILA ABARCA MD on 10/23/17 CBC Collected: 10/16/2017 Status: F Source: GEARY 7:50 AM [facility] REPOSITORY TYPE CODE TESTS RESULT OUT OF REFERENCE UNITS RANGE LAB WBC 3.70-11.00 k/uL WBC 10.22 LAB RBC 4.20-6.00 m/uL RBC 4.61 LAB HGB 13.0-17.0 g/dL Hemoglobin 14.8 LAB HCT 39.0-51.0 % Hematocrit 44.0 LAB MCV 80.0-100.0 fL MCV 95.4 LAB MCH 26.0-34.0 pG MCH 32.1 LAB MCHC 30.5-36.0 g/dL MCHC 33.6 LAB RDWCV 11.5-15.0 % RDW-CV 13.2 LAB PLTCT 150-400 k/uL Platelet Count 258 LAB MPV 9.0-12.7 fL MPV 11.2 LAB ABSNUC <0.01 k/uL Absolute nRBC <0.01 Performed By: #### CBC, CMP, LIPB, URIC, AHCV1B, HBA1C #### [facility] [address] [place] [address] COMP METABOLIC PANEL Collected: 10/16/2017 Status: F Source: GEARY 7:50 AM [facility] REPOSITORY TYPE CODE TESTS RESULT OUT OF REFERENCE UNITS RANGE LAB TP 6.3-8.0 g/dL Protein, Total 7.6 LAB ALB 3.9-4.9 g/dL Albumin 4.4 LAB CA 8.5-10.2 mg/dL Calcium, Total 9.8 LAB TBIL 0.2-1.3 mg/dL Bilirubin, Total 0.4 LAB ALKP 36-108 U/L Alkaline Phosphatase 64 LAB AST 14-40 U/L AST 22 LAB GLU 74-99 mg/dL Glucose High 152 Result Comment: The [place] Diabetes Association (ADA) provides guidance for cutoff values for fasting glucose and random glucose. The ADA defines fasting as no caloric intake for at least 8 hours. Fas ting plasma glucose results between 100 to 125 mg/dL indicate increased risk for diabetes (prediabetes). Fasting plasma glucose results greater than or equal to 126 mg/dL meet the criteria for diagnosis of diabetes. In the absence of unequivocal hyperglycemia, results should be confirmed by repeat testing. In a patient with classic symptoms of hyperglycemia or hyperglycemic crisis, random plasma glucose results greater than or equal to 200 mg/dL meet the criteria for diagnosis of diabetes. Reference: Standards of Medical Care in Diabetes 2016, [place] Diabetes Association. Diabetes Care. 2016.39(Suppl 1). LAB BUN 9-24 mg/dL BUN 16 LAB CRET 0.73-1.22 mg/dL Creatinine High 1.23 LAB NA 136-144 mmol/L Sodium 143 LAB K 3.7-5.1 mmol/L Potassium 4.7 LAB CL 97-105 mmol/L Chloride 102 LAB CO2 22-30 mmol/L CO2 29 LAB AGAP 9-18 mmol/L Anion Gap 12 LAB ALT 10-54 U/L ALT 15 LAB GFRAA eGFR- Amer. >60 LAB GFRNAA . eGFR-All Other Races 59 Result Comment: eGFR (Estimated GFR) Units of measure: mL/min/1.73 meters squared eGFR is derived from the reexpressed MDRD Study equation using the following parameters: serum creatinine, age, gender and race. The creatinine assay has been calibrated to be traceable to IDMS. An eGFR <60 mL/min/1.73m2 for >3 months is consistent with chronic kidney disease. Refer to KDOQI guidelines for clinical interpretation. In patients with unstable renal function, e.g. those with acute kidney injury, the eGFR may not accurately reflect actual GFR. Performed By: #### CBC, CMP, LIPB, URIC, AHCV1B, HBA1C #### [facility] [address] [place] [id number] LIPID PANEL, BASIC Collected: 10/16/2017 Status: F Source: GEARY 7:50 AM [facility] REPOSITORY TYPE CODE TESTS RESULT OUT OF REFERENCE UNITS RANGE LAB CHOL <200 mg/dL Cholesterol 176 Result Comment: <200 mg/dL, Desirable 200-239 mg/dL, Borderline high >239 mg/dL, High LAB TRIGLY <150 mg/dL Triglyceride 126 Result Comment: <150 mg/dL, Normal 150-199 mg/dL, Borderline high 200-499 mg/dL, High >499 mg/dL, Very high LAB HDL >39 mg/dL HDL-Cholesterol 43 Result Comment: 40-59 mg/dL, Acceptable >59 mg/dL, High: Negative risk factor for coronary heart disease <40 mg/dL, Low: Positive risk factor for coronary heart disease LAB LDL <100 mg/dL LDL-Cholesterol High 108 Result Comment: <100 mg/dL, Optimal 100-129 mg/dL, Near optimal/above optimal 130-159 mg/dL, Borderline high 160-189 mg/dL, High >189 mg/dL, Very high Secondary prevention optimal LDL Cholesterol levels are recommended to be < 70 mg/dL LAB NONHDL <130 mg/dL Non HDL High Cholesterol 133 Result Comment: <130 mg/dL, Optimal 130-159 mg/dL, Near optimal/above optimal 160-189 mg/dL, Borderline high 190-219 mg/dL, High >219 mg/dL, Very high Secondary prevention optimal non HDL Cholesterol levels are recommended to be < 100 mg/dL LAB FT hrs Fasting Time 12 LAB VLDL <30 mg/dL VLDL Cholesterol 25 LAB TCHDL <5.10 TC:HDL Ratio 4.09 LAB LDLHDL <2.54 LDL:HDL Ratio 2.51 Result Comment: Reference: 1. National Cholesterol Education Program ATP III Guideline At-A-Glance Quick Desk Reference: National Heart, Lung, and Blood [place]. National Institutes of Health. 2001: NIH Publication No. 01-3305. 2. An International Atherosclerosis Society position paper: global recommendations for the management of dyslipidemia: executive summary, Atherosclerosis. 2014: 232(2):410-413. Performed By: #### CBC, CMP, LIPB, URIC, AHCV1B, HBA1C #### [facility] [employer] [address] [address] URIC ACID Collected: 10/16/2017 Status: F Source: GEARY 7:50 AM [facility] REPOSITORY TYPE CODE TESTS RESULT OUT OF RANGE REFERENCE UNITS LAB URIC 4.0-8.1 mg/dL Uric Acid 6.0 Performed By: #### CBC, CMP, LIPB, URIC, AHCV1B, HBA1C #### [facility] [employer] [address] [place], [place] [id number] HEP C AB IA W/CONF Collected: 10/16/2017 Status: F Source: GEARY 7:50 AM [facility] REPOSITORY TYPE CODE TESTS RESULT OUT OF REFERENCE UNITS RANGE LAB AHCV Negative Hepatitis C Ab Negative IA Performed By: #### CBC, CMP, LIPB, URIC, AHCV1B, HBA1C #### [facility] [employer] [address] [place], [place] [address] HEMOGLOBIN A1C Collected: 10/16/2017 Status: F Source: GEARY 7:50 AM [facility] REPOSITORY TYPE CODE TESTS RESULT OUT OF REFERENCE UNITS RANGE LAB HGBA1C 4.3-5.6 % High Hemoglobin A1c 6.2 LAB HBA0 mg/dL Est. Average Glucose 131 Result Comment: eAG: (Estimated average glucose) is a calculated value from HgbA1c and is employment program representative of the average blood glucose level in the last 2-3 month period. Performed By: #### CBC, CMP, LIPB, URIC, AHCV1B, HBA1C #### [facility] [employer] [facility] [address] [place], [place] [address] ALBUMIN/CREAT RATIO Collected: 10/16/2017 Status: F Source: GEARY 7:50 AM [facility] REPOSITORY TYPE CODE TESTS RESULT OUT OF REFERENCE UNITS RANGE LAB UCRR 20-300 mg/dL Creatinine,Ur 224.8 ine,Ran LAB UALBR 0.0-23.0 mg/L High Albumin Urine 117.0 Random LAB UALBCR 0-30 mg/g High Albumin/Creat 52 Ratio Result Comment: 30 to 300 mg/g indicates an increased risk for diabetic nephropathy. Greater than 300 mg/g is consistent with clinical nephropathy. (Am J Kidney Disease 1995, 25:107) Performed By: #### UACR #### [facility] [employer] [facility] [address] [place], [place] [address] ALLERGIES ALLERGIES DATE TYPE / CODE NAME / CODE REACTION SEVERITY SOURCE 06/12/2018 Drug No Known Unknown [facility] Allergy/416 Allergies/E78974 Hospital 427950(SNOM 0388(RXNORM) Repository ED CT) Drug NO KNOWN [facility] Class/81082 ALLERGIES [facility] 1003(SNOMED Repository CT) ENCOUNTERS ENCOUNTERS ADMIT/DISCHARGE ACCOUNT ADMITTING ENCOUNTER LOCATION SOURCE NUMBER CLASS 08/27/2018 [id number] Ambulatory [facility] ing:LAB Repository 06/12/2018/06/12/20 [id number] Emergency [address] ing:ED Repository 06/06/2018/06/07/20 [id number] Mauro Gerber Inpatient [address] ing:OP3Asch: Repository MX667Qou: 1 05/29/2018 [id number] Ambulatory BMSBuilding:W [facility] Repository 04/27/2018/05/14/20 [id number] Ambulatory [address] Repository 04/23/2018 [id number] Ambulatory [facility] ing:LAB Repository 04/20/2018/04/20/20 [id number] Ambulatory [address] Repository 03/05/2018 [id number] Ambulatory [facility] ing:LABSPEC Repository 02/13/2018 [id number] [facility] ing:LAB Repository 10/23/2017/10/25/19 [id number] Ambulatory [address] Repository 10/16/2017/10/17/19 [id number] Ambulatory [address] Repository PAYERS PAYERS ENCOUNTER GUARANTOR PAYER SUBSCRIBER SOURCE 08/27/2018 MCCLEANE B Primary MCCLEANE B Lo [id number] [place] Insurance:MEDICARE JUMPDOB: [place], [place] PART A [facility]olic [id number] Hospital 71997Hsp: [phone]) Number: Repository [phone] HP [id number] Date:2018-08-27 08/27/2018 Secondary MCCLEANE B [place] Insurance:AARPPolicy JUMPDOB: [facility] Number: [id number] Hospital [id number] Repository Date:7055-02-27[address], [place] [address]CZ: 08/27/2018 Tertiary NOT GIVENUNK [place] Insurance:SELF PAY [facility] Number: Effective Repository Date:2018-08-27 06/12/2018 MCCLEANE B Primary MCCLEANE B Lo [id number] [place] Insurance:MEDICARE JUMPDOB: [place] PART A [facility] [id number] Hospital [address]Gxy: (330) Number: Repository [phone] () [id number] Date:2018-06-12 06/12/2018 Secondary MCCLEANE B Lo Insurance:AARPPolicy JUMPDOB: Community Number: [id number] Hospital [id number] Repository Date:[id number] [facility] [address], [place] [address]SP: 06/12/2018 Tertiary NOT GIVENUNK [place] Insurance:SELF PAY [facility] Number: Effective Repository Date:2018-06-12 06/06/2018 MCCLEANE B Primary MCCLEANE B [place] [id number] [place] Insurance:MEDICARE JUMPDOB: Community [place] PART A [facility] [id number] Hospital [address]Jra: [phone]) Number: Repository [phone] () [id number] Date:2018-05-01 06/06/2018 Secondary MCCLEANE B [place] Insurance:AARPPolicy JUMPDOB: Community Number: [id number] Hospital [id number] Repository Date:3037-58-71[address], [place] [address]AE: 06/06/2018 Tertiary NOT GIVENUNK [place] Insurance:SELF PAY [facility] Hospital Number: Effective Repository Date:2018-05-01 05/29/2018 MCCLEANE B Primary MCCLEANE B [place] [id number] [place] Insurance:MEDICARE JUMPDOB: [place] PART A [facility] [id number] Hospital [address]Qwb: [phone]) Number: Repository [phone] () [id number] Date:2018-05-01 05/29/2018 Secondary MCCLEANE B Lo Insurance:AARPPolicy JUMPDOB: Community Number: [id number] Hospital [id number] Repository Date:3622-29-54[address], [place] [address]BC: 05/29/2018 Tertiary NOT GIVENUNK [place] Insurance:SELF PAY [facility] Number: Effective Repository Date:2018-05-29 04/23/2018 MCCLEANE B Primary MCCLEANE B [place] [id number] [place] Insurance:MEDICARE JUMPDOB: [place] PART A [facility] [id number] Hospital 733[address]Ksx: [phone]) Number: Repository [phone] () [id number] Date:2018-04-23 04/23/2018 Secondary MCCLEANE B Lo Insurance:AARPPolicy JUMPDOB: Community Number: [id number] Hospital [id number] Repository Date:[id number] [facility] [id number] [place] [address]CJ: 04/23/2018 Tertiary NOT GIVENUNK [place] Insurance:SELF PAY [facility] Hospital Number: Effective Repository Date:2018-04-23 03/05/2018 MCCLEANE B Primary MCCLEANE B [place] [id number] [place] Insurance:MEDICARE JUMPDOB: [place] PART A [facility] [id number] Hospital [address]Ulb: (330) Number: Repository [phone] () [id number] Date:2018-03-05 03/05/2018 Secondary MCCLEANE B Lo Insurance:AARPPolicy JUMPDOB: Community Number: [id number] Hospital [id number] Repository Date:[id number] [facility] [address], [place] [address]IV: 03/05/2018 Tertiary NOT GIVENUNK [place] Insurance:SELF PAY [facility] Hospital Number: Effective Repository Date:2018-03-05 02/13/2018 MCCLEANE B Primary MCCLEANE B Lo [id number] [place] Insurance:MEDICARE JUMPDOB: [place] PART A [facility] [id number] Hospital [address]Bcn: (330) Number: Repository [phone] () [id number] Date:2018-02-13 02/13/2018 Secondary MCCLEANE B Lo Insurance:AARPPolicy JUMPDOB: Community Number: [id number] Hospital [id number] Repository Date:3902-41-20[address], [place] [address]WP: 02/13/2018 Tertiary NOT GIVENUNK [place] Insurance:SELF PAY [facility]: Effective Repository Date:2018-02-13
== END ==
PROVIDERS: Family Provider Internal Medicine; PCP Internal Medicine; Referring Provider Urology; Visit Provider Urology
DX: C61 Malignant neoplasm of prostate (principal)
CPT/HCPCS: 36415; 84153

== ENCOUNTER → 2018-11-20 09:38 | Outpatient (CLI) | payer MEDICARE, OTHER, SELFPAY ==
[2018-11-20 11:17] LABS: PSA,Total- Diagnostic < 0.01 ng/mL (0.0-4.0)
== END ==
PROVIDERS: Family Provider Internal Medicine; PCP Internal Medicine; Referring Provider Urology; Visit Provider Urology
DX: C61 Malignant neoplasm of prostate (principal); R97.20 Elevated prostate specific antigen [PSA]
CPT/HCPCS: 36415; 84153

== ENCOUNTER → 2019-05-21 13:44 | Outpatient (CLI) | payer MEDICARE, OTHER, SELFPAY ==
[2019-05-21 15:26] LABS: PSA,Total- Diagnostic < 0.01 ng/mL (0.0-4.0)
== END ==
PROVIDERS: Family Provider Internal Medicine; PCP Internal Medicine; Referring Provider Urology; Visit Provider Urology
DX: C61 Malignant neoplasm of prostate (principal); R97.20 Elevated prostate specific antigen [PSA]
CPT/HCPCS: 36415; 84153

== ENCOUNTER → 2019-11-29 10:53 | Outpatient (CLI) | payer MEDICARE, OTHER, SELFPAY ==
[2019-11-29 12:08] LABS: PSA,Total- Diagnostic < 0.01 ng/mL (0.0-4.0)
== END ==
PROVIDERS: PCP Internal Medicine; Referring Provider Urology; Visit Provider Urology
DX: C61 Malignant neoplasm of prostate (principal)
CPT/HCPCS: 36415; 84153

== ENCOUNTER → 2020-05-27 09:46 | Outpatient (CLI) | payer MEDICARE, OTHER, SELFPAY ==
[2020-05-27 11:12] LABS: PSA,Total- Diagnostic < 0.01 ng/mL (0.0-4.0)
== END ==
PROVIDERS: PCP Internal Medicine; Visit Provider Urology
DX: C61 Malignant neoplasm of prostate (principal)
CPT/HCPCS: 36415; 84153

== ENCOUNTER → 2020-12-31 14:41 | Outpatient (CLI) | payer MEDICARE, OTHER, SELFPAY ==
[2020-12-15 14:38] VITALS: BMI 29.4
--- NOTE | 2020-12-31 14:43 | CT_ITS ---
STUDY: CT CHEST WITHOUT CONTRAST REASON FOR EXAM: Male, 70 years old. RML nodule, RUL groundglass, hilar LN -- Compare [facility] CT 04/22/20 S/P biopsy neg malignancy RADIATION DOSAGE (If Supplied By Facility): CTDIvol = ( 14.17 ) mGy, DLP = ( 577.29 ) mGycm TECHNIQUE: Transaxial imaging was performed without the administration of intravenous contrast material. Multiplanar coronal and sagittal images were reformatted. Individualized dose optimization techniques were used for this CT. COMPARISON: Comparison is made with prior outside CT examination dated 04/22/2020. FINDINGS: Small bilateral axillary lymph nodes. Hyperinflation. There is evidence of a emphysematous changes with a centrilobular changes in the lungs worse in the upper lobes. Increased interstitial markings seen in the lower lobes as well as in the right middle lobe and lingular segment of the left upper lobe and the peripheral aspects. This most likely represents chronic interstitial fibrosis. There is evidence of a 1.1 cm x 0.8 cm well-defined nodule in the posterior aspect of the right middle lobe abutting the right major fissure as seen on axial image #87. There are calcifications of the coronary arteries. There are multiple small lymph nodes within the mediastinum, which are normal in size and morphology most compatible with reactive lymph hyperplasia. Stable minimally enlarged right hilar lymph node. Normal unenhanced pulmonary arteries. There is atherosclerotic calcification of the aortic arch with tortuosity and elongation of the aortic arch and descending thoracic aorta. There are multi-level degenerative changes of the thoracic spine. Multiple gallstones. CT/Chest without Contrast IMPRESSION: Stable examination. Electronically Signed: Ollie Davis MD at 13:23 EDT , Service support ,
== END ==
PROVIDERS: PCP Internal Medicine; Referring Provider Internal Medicine; Visit Provider Internal Medicine
DX: Z87.898 Personal history of other specified conditions (principal)
CPT/HCPCS: 71250

== ENCOUNTER → 2021-06-01 09:11 | Outpatient (CLI) | payer MEDICARE, OTHER, SELFPAY ==
[2021-06-01 11:19] LABS: PSA,Total- Diagnostic < 0.01 ng/mL (0.0-4.0)
== END ==
PROVIDERS: PCP Internal Medicine; Referring Provider Urology; Visit Provider Urology
DX: R97.20 Elevated prostate specific antigen [PSA] (principal)
CPT/HCPCS: 36415; 84153

== ENCOUNTER → 2021-06-18 09:26 | Outpatient (CLI) | payer MEDICARE, OTHER, SELFPAY ==
[2021-06-18 12:28] LABS: Absolute Lymphocyte Count 2.18 X10^3/uL (0.83-4.51); Absolute Neutrophil Count 4.1 X10^3/uL (2.0-7.7); Basophil# 0.08 X10^3/uL; Basophil% 1.1 % (0-1); Eosinophil# 0.18 X10^3/uL; Eosinophils% 2.4 % (0-5); Hematocrit 38.8 % (40-54); Lymphocyte # 2.18 X10^3/ul (0.83-4.51); Lymphocyte % 29.5 % (19-41); Mean Corp Hgb Conc 33.5 g/dL (32-36); Mean Corpuscular Hgb 32.2 pg (27.0-32.0); Mean Platelet Vol. 12.5 fl (6.2-12.0); Monocyte# 0.84 X10^3/uL; Monocyte% 11.4 % (0-10); NRBC Flagged by Analyzer 0 % (0-5); Neutrophil # 4.09 X10^3/uL (2.7-7.7); Neutrophil % 55.3 % (47-70); Platelet Count 280 K/mm3 (150-450); RBC Distribution Width CV 13.2 % (11.6-14.6); RBC Distribution Width SD 46.8 fl (35.1-43.9); Red Blood Count 4.04 M/mm3 (4.6-6.2); White Blood Count 7.4 K/mm3 (4.4-11.0)
[2021-06-18 12:49] LABS: ALB/GLOB Ratio 0.9 RATIO (0.9-2.4); AST(SGOT) 18 U/L (15-37); Alanine Aminotransfer ALT/SGPT 20 U/L (16-61); Albumin, Serum 3.5 g/dL (3.2-5.0); Alkaline Phosphatase 76 U/L (45-117); Anion Gap 5 (5-15); BUN 14 mg/dL (7-18); BUN/Creat Ratio 11.3 RATIO (10-20); Calcium,Total 9.4 mg/dL (8.5-10.1); Chloride 106 mmol/L (98-107); Cholesterol 144 mg/dL (200); Creatinine, Serum 1.24 mg/dL (0.70-1.30); EST Glomerular Filtration Rate 61 mL/min (>60); Est Glom Filt Rate - Afr Amer 74 mL/min (>60); Globulin 3.7 g/dL (2.2-4.2); Glucose 137 mg/dL (74-106); High Density Lipoprotein 41 mg/dL; Potassium 4.5 mmol/L (3.5-5.1); Protein, Total 7.2 g/dL (6.4-8.2); Sodium Level 140 mmol/L (136-145); Thyroid Stim Hormone (TSH) 1.81 uIU/mL (0.358-3.74); Triglycerides 112 mg/dL; Very Low Density Lipoprotein 22 mg/dL (5-40)
[2021-06-18 12:50] LABS: Vitamin D,25 Hydroxy 47.6 ng/mL
== END ==
PROVIDERS: PCP Internal Medicine; Referring Provider Internal Medicine; Visit Provider Internal Medicine
DX: E55.9 Vitamin D deficiency, unspecified (principal); E11.9 Type 2 diabetes mellitus without complications; E78.5 Hyperlipidemia, unspecified; I10 Essential (primary) hypertension
CPT/HCPCS: 36415; 80053; 80061; 82306; 84443; 85025

== ENCOUNTER → 2021-06-24 12:50 | Outpatient (CLI) | payer MEDICARE, OTHER, SELFPAY ==
--- NOTE | 2021-06-24 12:52 | ECHOCS_ITS ---
Reason For Study: DYSPNEA/SOB Procedure This was a 2D Doppler, Color Flow transthoracic echocardiogram. The study was technically difficult. Due to poor parasternal accoustic windows. Contrast injection was performed. Left Ventricle Normal LV size. The estimated ejection fraction is 60 %. No evidence for diastolic dysfunction. No regional wall motion abnormalities noted. Right Ventricle Normal RV size. Normal systolic function. Atria Normal left atrium. Normal right atrium. No doppler evidence for ASD. Mitral Valve There is no mitral valve stenosis. No mitral valve insufficiency. Tricuspid Valve There is no tricuspid stenosis. Unable to estimate RV systolic pressure due to inadequate jet, pulmonary artery pressure probably normal. Aortic Valve Aortic sclerosis, no stenosis. Trisinus/trileaflet aortic valve. There is no aortic stenosis. No aortic valve insufficiency. Pulmonic Valve There is no pulmonic valvular stenosis. No pulmonic valve insufficiency. Great Vessels Normal aortic root. Pericardium/Pleural No pericardial effusion. Medication 22 gauge I.V. with prn adaptor inserted into right arm. Diluted definity 3.0ml given slow IV push to enhance endocardial definition. MMode/2D Measurements & Calculations LVIDd: 4.1 cm IVSd: 1.1 cm LVOT diam: 2.3 cm LVIDs: 2.8 cm LVPWd: 1.1 cm RVDd: 3.4 cm FS: 30.8 % LVOT area: 4.2 cm2 LAV(MOD-bp): 57.5 ml LA A4 area: 17.0 cm2 LA dimension(2D): 4.2 cm LAV(MOD-bp) Indexed: 29.4 ml/m2 LAV(MOD-sp2): 56.8 ml LAV(MOD-sp4): 49.2 ml RA A4 area: 15.2 cm2 Time Measurements MV dec time: 0.29 sec Doppler Measurements & Calculations MV E max gail: 81.0 cm/sec Ao V2 max: 127.2 cm/sec LV V1 max: 109.8 cm/sec MV A max gail: 104.8 cm/sec Ao max P.5 mmHg LV V1 max P.8 mmHg MV E/A: 0.77 Ao V2 mean: 99.5 cm/sec LV V1 mean P.7 mmHg Ao mean P.2 mmHg LV V1 mean: 79.3 cm/sec Ao V2 VTI: 30.6 cm LV V1 VTI: 25.2 cm EDGARDO(I,D): 3.4 cm2 EDGARDO(V,D): 3.6 cm2 SV(LVOT): 104.8 ml PA V2 max: 122.8 cm/sec ECHO/Echo Complete W/ Contrast Interpretation Summary The estimated ejection fraction is 60 %. No evidence for diastolic dysfunction. Ordering Physician: Vaishali Elizabeth Referring Physician: Vaishali Elizabeth Performed By: Page Williamson, JOHANNA, RVT
== END ==
PROVIDERS: PCP Internal Medicine; Referring Provider Internal Medicine; Visit Provider Internal Medicine
DX: R06.00 Dyspnea, unspecified (principal); R06.02 Shortness of breath
CPT/HCPCS: 93306; Q9957; A4216; C8929; J3490

== ENCOUNTER → 2021-12-16 | Outpatient (CLI) | payer MEDICARE, OTHER, SELFPAY ==
[2021-12-16 12:19] LABS: Absolute Lymphocyte Count 2.09 X10^3/uL (0.83-4.51); Absolute Neutrophil Count 5.2 X10^3/uL (2.0-7.7); Basophil# 0.11 X10^3/uL; Basophil% 1.3 % (0-1); Eosinophil# 0.11 X10^3/uL; Eosinophils% 1.3 % (0-5); Hematocrit 38.6 % (40-54); Hemoglobin 13.3 g/dL (13.0-16.5); Lymphocyte # 2.09 X10^3/ul (0.83-4.51); Lymphocyte % 25.2 % (19-41); Mean Corp Hgb Conc 34.5 g/dL (32-36); Mean Corpuscular Hgb 33.2 pg (27.0-32.0); Mean Corpuscular Volume 96.3 fL (80-94); Mean Platelet Vol. 11.4 fl (6.2-12.0); Monocyte# 0.73 X10^3/uL; Monocyte% 8.8 % (0-10); NRBC Flagged by Analyzer 0 % (0-5); Neutrophil # 5.22 X10^3/uL (2.7-7.7); Neutrophil % 63.2 % (47-70); Platelet Count 268 K/mm3 (150-450); RBC Distribution Width CV 13.2 % (11.6-14.6); RBC Distribution Width SD 46.3 fl (35.1-43.9); Red Blood Count 4.01 M/mm3 (4.6-6.2); White Blood Count 8.3 K/mm3 (4.4-11.0)
[2021-12-16 12:46] LABS: ALB/GLOB Ratio 1.1 RATIO (0.9-2.4); AST(SGOT) 13 U/L (15-37); Alanine Aminotransfer ALT/SGPT 19 U/L (16-61); Albumin, Serum 3.8 g/dL (3.2-5.0); Alkaline Phosphatase 66 U/L (45-117); Anion Gap 3 (5-15); BUN 19 mg/dL (7-18); BUN/Creat Ratio 14.5 RATIO (10-20); Calcium,Total 9.7 mg/dL (8.5-10.1); Chloride 103 mmol/L (98-107); Creatinine, Serum 1.31 mg/dL (0.70-1.30); EST Glomerular Filtration Rate 57 mL/min (>60); Est Glom Filt Rate - Afr Amer 69 mL/min (>60); Globulin 3.5 g/dL (2.2-4.2); Glucose 157 mg/dL (74-106); Potassium 4.2 mmol/L (3.5-5.1); Protein, Total 7.3 g/dL (6.4-8.2); Sodium Level 137 mmol/L (136-145)
== END | disposition home or self-care (01) ==
LOC: BIMLAB 11:12
PROVIDERS: PCP Internal Medicine; Referring Provider Internal Medicine; Visit Provider Internal Medicine
DX: E11.9 Type 2 diabetes mellitus without complications (principal); E78.5 Hyperlipidemia, unspecified; M19.90 Unspecified osteoarthritis, unspecified site; I10 Essential (primary) hypertension; Z85.9 Personal history of malignant neoplasm, unspecified
CPT/HCPCS: 36415; 80053; 85025

== ENCOUNTER → 2022-06-09 | Outpatient (CLI) | payer MEDICARE, OTHER, SELFPAY ==
[2022-06-09 15:16] LABS: PSA,Total- Diagnostic < 0.01 ng/mL (0.0-4.0)
== END | disposition home or self-care (01) ==
LOC: LAB 13:21
PROVIDERS: PCP Internal Medicine; Referring Provider Urology; Visit Provider Urology
DX: C61 Malignant neoplasm of prostate (principal)
CPT/HCPCS: 36415; 84153

== ENCOUNTER → 2023-06-13 | Outpatient (CLI) | payer MEDICARE, OTHER, SELFPAY ==
[2023-06-13 10:54] LABS: Absolute Lymphocyte Count 1.95 X10^3/uL (0.83-4.51); Absolute Neutrophil Count 4.9 X10^3/uL (2.0-7.7); Basophil# 0.09 X10^3/uL; Basophil% 1.1 % (0-1); Eosinophil# 0.12 X10^3/uL; Eosinophils% 1.5 % (0-5); Hematocrit 39.2 % (40-54); Hemoglobin 13.3 g/dL (13.0-16.5); Lymphocyte # 1.95 X10^3/ul (0.83-4.51); Lymphocyte % 24.2 % (19-41); Mean Corp Hgb Conc 33.9 g/dL (32-36); Mean Corpuscular Hgb 33.4 pg (27.0-32.0); Mean Corpuscular Volume 98.5 fL (80-94); Mean Platelet Vol. 10.2 fl (6.2-12.0); Monocyte# 1.03 X10^3/uL; Monocyte% 12.8 % (0-10); NRBC Flagged by Analyzer 0 % (0-5); Neutrophil # 4.87 X10^3/uL (2.7-7.7); Neutrophil % 60.3 % (47-70); Platelet Count 271 K/mm3 (150-450); RBC Distribution Width CV 13.6 % (11.6-14.6); RBC Distribution Width SD 49.2 fl (35.1-43.9); Red Blood Count 3.98 M/mm3 (4.6-6.2); White Blood Count 8.1 K/mm3 (4.4-11.0)
[2023-06-13 11:26] LABS: Vitamin D,25 Hydroxy 64.5 ng/mL
[2023-06-13 11:37] LABS: ALB/GLOB Ratio 1.1 RATIO (0.9-2.4); AST(SGOT) 15 U/L (15-37); Alanine Aminotransfer ALT/SGPT 15 U/L (16-61); Albumin, Serum 3.7 g/dL (3.2-5.0); Alkaline Phosphatase 74 U/L (45-117); Anion Gap 5 (5-15); BUN 13 mg/dL (7-18); BUN/Creat Ratio 10.1 RATIO (10-20); Calcium,Total 9.1 mg/dL (8.5-10.1); Chloride 102 mmol/L (98-107); Cholesterol 145 mg/dL (200); Creatinine, Serum 1.29 mg/dL (0.70-1.30); EST Glomerular Filtration Rate 58 mL/min (>60); Est Glom Filt Rate - Afr Amer 70 mL/min (>60); Globulin 3.5 g/dL (2.2-4.2); Glucose 219 mg/dL (74-106); High Density Lipoprotein 43 mg/dL; PSA,Total- Diagnostic < 0.01 ng/mL (0.0-4.0); Potassium 3.9 mmol/L (3.5-5.1); Protein, Total 7.2 g/dL (6.4-8.2); Sodium Level 135 mmol/L (136-145); Thyroid Stim Hormone (TSH) 1.83 uIU/mL (0.358-3.74); Triglycerides 115 mg/dL; Very Low Density Lipoprotein 23 mg/dL (5-40)
== END | disposition home or self-care (01) ==
PROVIDERS: PCP Internal Medicine; Referring Provider Registered Nurse; Visit Provider Registered Nurse
DX: E78.5 Hyperlipidemia, unspecified (principal); E11.65 Type 2 diabetes mellitus with hyperglycemia; C61 Malignant neoplasm of prostate; I10 Essential (primary) hypertension; K21.9 Gastro-esophageal reflux disease without esophagitis; M19.90 Unspecified osteoarthritis, unspecified site; E55.9 Vitamin D deficiency, unspecified
CPT/HCPCS: 36415; 80053; 80061; 82306; 83036; 84153; 84443; 85025

== ENCOUNTER → 2023-07-07 | Outpatient (CLI) | payer MEDICARE, OTHER, SELFPAY ==
--- NOTE | 2023-07-07 13:07 | CT_ITS ---
EXAM: CT NECK WITH INTRAVENOUS CONTRAST CLINICAL INDICATION: Cervical lymphadenopathy TECHNIQUE: Helically acquired images were obtained of the neck with intravenous contrast. This CT exam was performed using one or more of the following dose reduction techniques: automated exposure control, adjustment of the mA and/or kV according to patient size, and/or use of iterative reconstruction technique. CONTRAST: IV 75mL Isovue-300 COMPARISON: No relevant prior studies available. FINDINGS: NASOPHARYNX: Normal. SUPRAHYOID NECK: Normal. Oropharynx, oral cavity, parapharyngeal space and retropharyngeal space are unremarkable. INFRAHYOID NECK: Normal. The larynx, hypopharynx and supraglottis are unremarkable. SUBMANDIBULAR/PAROTID GLANDS: Salivary glands are normal in size. THYROID: Normal. No thyroid nodules or calcification. BONES/JOINTS: No suspicious lytic or blastic abnormality. SOFT TISSUES: Normal. VASCULATURE: Mild calcific plaquing noted along the proximal portion of the internal and external carotid arteries bilaterally without stenosis or occlusion. LYMPH NODES: 1.4 x 1.2 cm left level 2 cervical lymph node noted with uniform contrast enhancement suggestive of reactive change. LUNG APICES: Small bilateral apical blebs are noted. CT/Soft Tissue Neck WITH Contrast IMPRESSION: 1.4 x 1.2 cm left level 2 cervical lymph node consistent with reactive change. Electronically Signed: Tang Mendez MD at 10:57 EST ,
== END | disposition home or self-care (01) ==
LOC: CT 13:07
PROVIDERS: PCP Internal Medicine; Referring Provider Internal Medicine; Visit Provider Internal Medicine
DX: R59.0 Localized enlarged lymph nodes (principal)
CPT/HCPCS: 70491; Q9967; A4216

== ENCOUNTER → 2023-08-16 | Outpatient (CLI) | payer MEDICARE, OTHER, SELFPAY ==
--- OUTSIDE RECORDS SUMMARY | 2023-08-16 13:29 | XMS RPT_ITS | CCD ---
Author Name Unknown Address [address] [place] [address] [address] [place] [address] Organization [facility] Care Team Providers Care Film Processing Shift Supervisor Name Role Phone STEVE LOPEZ, DR FRANCOIS Primary Care Physician TESSA MAYORGA DO Attending Unavailable STEVE LOPEZ, DR FRANCOIS Primary Care Unavailable Results Test Name Value Interpretation Reference Range Facil ity Encounters Encounter Date Encounter Type Care Provider Facility Start: 08-30-2022 End: 08-31-2022 ambulatory TESSA MAYORGA DO Facility:B Start: 08-30-2022 End: 08-30-2022 Patient encounter procedure TESSA MAYORGA DO [facility] Payers Date Payer Category Payer Medicare [id number] 2022 Private Health Insurance [id number] 1950 Unknown [id number] Social History Date Type Detail Facility Tobacco smoking status No Smoking Status Entered [facility] Sex Assigned At Male [facility] Clinical Note 07-12-2021 Note Date & Type Note Facility 07-12-2021 Note Patient Outreach ([facility]) FARHAD DUNAWAY ([id number]) 1950 M Date Time Provider Department 07/12/21 ERENDIRA COSBY During your visit today, we recorded the following information about you: Erendira Cosby MA 07/12/2021 1:47 PM Signed POPULATION HEALTH NAVIGATION OUTREACH Action/FYI Patient is seeing Dr. Elizabeth . He changed PCP do to waited in room for over one hour. Updated PCP . Health Maintenance items due: ANNUAL MEDICARE WELLNESS EXAM BP CONTROLLED (<130/80) Never done ADVANCE DIRECTIVE DISCUSSION Never done URINE ALBUMIN:CREATININE RATIO due on 04/03/2020 DILATED RETINAL EXAM due on 02/18/2021 INFLUENZA(1) due on 04/07/2021 HBA1C due on 05/12/2021 Contact made with patient or family member? YES Pt identified by name and : YES Outreach Outcome/Action Spoke to patient or caregiver: PCP confirmed / updated Reason for Outreach Care Gap or Scheduling/Wellness visits Payer: Payor: MEDICARE / Plan: MEDICARE A AND B / Product Type: Medicare / Care Gap Reviewed:: Annual Wellness visit Controlling Blood Pressure Diabetic Eye Exam HBA1C Nephropathy (Albumin/Creatinine) Urine Flu vaccine Reminder: Reminder note to check Health Maintenance for items below Health Maintenance items due: COVID-19 VACCINE(1) Never done BP CONTROLLED (<130/80) Never done DTAP,TDAP,TD(1 - Tdap) Never done ADVANCE DIRECTIVE DISCUSSION Never done URINE ALBUMIN:CREATININE RATIO due on 04/03/2020 DIABETIC FOOT EXAM due on 04/10/2020 DILATED RETINAL EXAM due on 02/18/2021 INFLUENZA(1) due on 04/07/2021 LUNG CANCER SCREENING due on 04/22/2021 HBA1C due on 05/12/2021 Advanced Directives Completed: Have you ever planned for future healthcare decisions with a power of state's attorney, living will, or advance directives? Referrals: N/A Message Sent to Practice: NO Navigation Signature: Erendira Cosby MA July 12, 2021 10:21 AM Allergies As of Date: 07/12/2021 (No Known Allergies) Date Reviewed: 11/13/2020 Reviewed by: Jeniffer Donovan LPN - Fully Assessed Reason for Visit: Population Health Navigation Outreach [3910] Cmt: ACO CHAR PCSA Prescriptions as of 07/12/2021 - lisinopril (ZESTRIL,PRINIVIL) 30 mg tablet Take 1 tablet by mouth once daily. - atorvastatin (LIPITOR) 20 mg tablet Take 1 tablet by mouth once daily. - allopurinol (ZYLOPRIM) 100 mg tablet Take 1 tablet by mouth once daily. - metFORMIN ER (GLUCOPHAGE XR) 500 mg 24 hr tablet Take 2 tablets by mouth daily with breakfast. (will let us know when needs next presciption) - varenicline (CHANTIX) 0.5 mg (11)- 1 mg (42) tablet Take 1 tablet (0.5 mg) by mouth once daily for 3 days, then 1 tablet (0.5 mg) twice daily for 4 days, then one tablet (1 mg) twice daily. - varenicline (CHANTIX) 1 mg tablet Take 1 tablet by mouth twice daily. - blood sugar diagnostic ([employer] VERIO TEST STRIPS) test strip Test blood sugar(s) 1 times daily and as needed. Dx: Type 2 DM - Controlled E11.9 Insulin: No - lancets (EASY TOUCH TWIST LANCETS) 30 gauge DM Type II E11.9 Insulin: NO, Test one time a day or as directed - omeprazole (PRILOSEC) 40 mg capsule Take 40 mg by mouth once daily. - aspirin(MARINA LOW STRENGTH 81 MG TAB) Take one(1) tablet daily. - MULTIVITAMIN TAB Take one(1) tablet daily. 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] 11/09/2007 SCREENING MAL NEOP-COLON [Z12.11] 09/19/2008 BENIGN NEOPLASM LG BOWEL [D12.6] 09/19/2008 DIVERTICULOSIS OF COLON W/O BLEED [K57.30] 09/19/2008 INT HEMORRHOID W/O COMPL [K64.8] 09/19/2008 EXT HEMORRHOID W/O COMPL [K64.4] 09/19/2008 Type 2 diabetes mellitus with mild nonprolifera* 10/23/2017 Elevated prostate specific antigen (PSA) [R97.2*07/07/2016 Benign non-nodular prostatic hyperplasia withou*07/07/2016 Prostate cancer (HCC) [C61] 09/01/2016 Type 2 diabetes mellitus with mild nonprolifera*10/23/2017 Albuminuria [R80.9] 11/22/2018 Hyperuricemia [E79.0] 04/25/2019 Smoker [F17.200] 07/11/2019 Encounter Status:Closed by ERENDIRA COSBY on 07/12/21 [facility] Progress note 07-12-2021 Note Date & Type Note Facility 07-12-2021 Note HNO ID: [id number] Author: Erendira Cosby MA Service: ? Author Type: Household Refrigeration Mechanic Type: Progress Notes Filed: 07/12/2021 1:47 PM Note Text: POPULATION HEALTH NAVIGATION OUTREACH Action/FYI Patient is seeing Dr. Elizabeth . He changed PCP do to waited in room for over one hour. Updated PCP . Health Maintenance items due: ANNUAL MEDICARE WELLNESS EXAM BP CONTROLLED (<130/80) Never done ADVANCE DIRECTIVE DISCUSSION Never done URINE ALBUMIN:CREATININE RATIO due on 04/03/2020 DILATED RETINAL EXAM due on 02/18/2021 INFLUENZA(1) due on 04/07/2021 HBA1C due on 05/12/2021 Contact made with patient or family member? YES Pt identified by name and : YES Outreach Outcome/Action Spoke to patient or caregiver: PCP confirmed / updated Reason for Outreach Care Gap or Scheduling/Wellness visits Payer: Payor: MEDICARE / Plan: MEDICARE A AND B / Product Type: Medicare / Care Gap Reviewed:: Annual Wellness visit Controlling Blood Pressure Diabetic Eye Exam HBA1C Nephropathy (Albumin/Creatinine) Urine Flu vaccine Reminder: Reminder note to check Health Maintenance for items below Health Maintenance items due: COVID-19 VACCINE(1) Never done BP CONTROLLED (<130/80) Never done DTAP,TDAP,TD(1 - Tdap) Never done ADVANCE DIRECTIVE DISCUSSION Never done URINE ALBUMIN:CREATININE RATIO due on 04/03/2020 DIABETIC FOOT EXAM due on 04/10/2020 DILATED RETINAL EXAM due on 02/18/2021 INFLUENZA(1) due on 04/07/2021 LUNG CANCER SCREENING due on 04/22/2021 HBA1C due on 05/12/2021 Advanced Directives Completed: Have you ever planned for future healthcare decisions with a power of state's attorney, living will, or advance directives? Referrals: N/A Message Sent to Practice: NO Navigation Signature: Erendira Cosby MA July 12, 2021 10:21 AM [facility] Clinical Note 04-29-2021 Note Date & Type Note Facility 04-29-2021 Note Patient Outreach ([facility]) FARHAD DUNAWAY ([id number]) 1950 M Date Time Provider Department 04/29/21 ERENDIRA COSBY [facility] During your visit today, we recorded the following information about you: Erendira Cosby MA 04/29/2021 12:11 PM Signed POPULATION HEALTH NAVIGATION OUTREACH Action/ Christopher x 2 Secrette MESSAGE SENT Health Maintenance items due: ANNUAL MEDICARE WELLNESS EXAM BP CONTROLLED (<130/80) Never done ADVANCE DIRECTIVE DISCUSSION Never done URINE ALBUMIN:CREATININE RATIO due on 04/03/2020 DILATED RETINAL EXAM due on 02/18/2021 INFLUENZA(1) due on 04/07/2021 SMOKING CESSATION Contact made with patient or family member? NO Pt identified by name and : NO Outreach Outcome/Action Unable to reach patient: Phone number not valid / voicemail full [employer] message sent Reason for Outreach Care Gap or Scheduling/Wellness visits Payer: Payor: MEDICARE / Plan: MEDICARE A AND B / Product Type: Medicare / Care Gap Reviewed:: Annual Wellness visit Controlling Blood Pressure Diabetic Eye Exam Nephropathy (Albumin/Creatinine) Urine Flu vaccine Smoking cessation ACO only Reminder: Reminder note to check Health Maintenance for items below Health Maintenance items due: COVID-19 VACCINE(1) Never done BP CONTROLLED (<130/80) Never done DTAP,TDAP,TD(1 - Tdap) Never done ADVANCE DIRECTIVE DISCUSSION Never done URINE ALBUMIN:CREATININE RATIO due on 04/03/2020 DIABETIC FOOT EXAM due on 04/10/2020 DILATED RETINAL EXAM due on 02/18/2021 INFLUENZA(1) due on 04/07/2021 LUNG CANCER SCREENING due on 04/22/2021 Advanced Directives Completed: Have you ever planned for future healthcare decisions with a power of state's attorney, living will, or advance directives? Referrals: N/A Message Sent to Practice: NO Navigation Signature: Erendira Cosby MA April 29, 2021 8:30 AM Allergies As of Date: 04/29/2021 (No Known Allergies) Date Reviewed: 11/13/2020 Reviewed by: Jeniffer Donovan LPN - Fully Assessed Reason for Visit: Population Health Navigation Outreach [3910] Cmt: JESENIA PARDO PCSA Prescriptions as of 04/29/2021 - lisinopril (ZESTRIL,PRINIVIL) 30 mg tablet Take 1 tablet by mouth once daily. - atorvastatin (LIPITOR) 20 mg tablet Take 1 tablet by mouth once daily. - allopurinol (ZYLOPRIM) 100 mg tablet Take 1 tablet by mouth once daily. - metFORMIN ER (GLUCOPHAGE XR) 500 mg 24 hr tablet Take 2 tablets by mouth daily with breakfast. (will let us know when needs next presciption) - varenicline (CHANTIX) 0.5 mg (11)- 1 mg (42) tablet Take 1 tablet (0.5 mg) by mouth once daily for 3 days, then 1 tablet (0.5 mg) twice daily for 4 days, then one tablet (1 mg) twice daily. - varenicline (CHANTIX) 1 mg tablet Take 1 tablet by mouth twice daily. - blood sugar diagnostic ([employer] VERIO TEST STRIPS) test strip Test blood sugar(s) 1 times daily and as needed. Dx: Type 2 DM - Controlled E11.9 Insulin: No - lancets (EASY TOUCH TWIST LANCETS) 30 gauge DM Type II E11.9 Insulin: NO, Test one time a day or as directed - omeprazole (PRILOSEC) 40 mg capsule Take 40 mg by mouth once daily. - aspirin(MARINA LOW STRENGTH 81 MG TAB) Take one(1) tablet daily. - MULTIVITAMIN TAB Take one(1) tablet daily. 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] 11/09/2007 SCREENING MAL NEOP-COLON [Z12.11] 09/19/2008 BENIGN NEOPLASM LG BOWEL [D12.6] 09/19/2008 DIVERTICULOSIS OF COLON W/O BLEED [K57.30] 09/19/2008 INT HEMORRHOID W/O COMPL [K64.8] 09/19/2008 EXT HEMORRHOID W/O COMPL [K64.4] 09/19/2008 Type 2 diabetes mellitus with mild nonprolifera* 10/23/2017 Elevated prostate specific antigen (PSA) [R97.2*07/07/2016 Benign non-nodular prostatic hyperplasia withou*07/07/2016 Prostate cancer (HCC) [C61] 09/01/2016 Type 2 diabetes mellitus with mild nonprolifera*10/23/2017 Albuminuria [R80.9] 11/22/2018 Hyperuricemia [E79.0] 04/25/2019 Smoker [F17.200] 07/11/2019 Encounter Status:Closed by ERENDIRA COSBY on 04/29/21 [facility] Progress note 04-29-2021 Note Date & Type Note Facility 04-29-2021 Note HNO ID: [id number] Author: Erendira Cosby MA Service: ? Author Type: Household Refrigeration Mechanic Type: Progress Notes Filed: 04/29/2021 12:11 PM Note Text: POPULATION HEALTH NAVIGATION OUTREACH Action/I Busy x 2 Secrette MESSAGE SENT Health Maintenance items due: ANNUAL MEDICARE WELLNESS EXAM BP CONTROLLED (<130/80) Never done ADVANCE DIRECTIVE DISCUSSION Never done URINE ALBUMIN:CREATININE RATIO due on 04/03/2020 DILATED RETINAL EXAM due on 02/18/2021 INFLUENZA(1) due on 04/07/2021 SMOKING CESSATION Contact made with patient or family member? NO Pt identified by name and : NO Outreach Outcome/Action Unable to reach patient: Phone number not valid / voicemail full [employer] message sent Reason for Outreach Care Gap or Scheduling/Wellness visits Payer: Payor: MEDICARE / Plan: MEDICARE A AND B / Product Type: Medicare / Care Gap Reviewed:: Annual Wellness visit Controlling Blood Pressure Diabetic Eye Exam Nephropathy (Albumin/Creatinine) Urine Flu vaccine Smoking cessation ACO only Reminder: Reminder note to check Health Maintenance for items below Health Maintenance items due: COVID-19 VACCINE(1) Never done BP CONTROLLED (<130/80) Never done DTAP,TDAP,TD(1 - Tdap) Never done ADVANCE DIRECTIVE DISCUSSION Never done URINE ALBUMIN:CREATININE RATIO due on 04/03/2020 DIABETIC FOOT EXAM due on 04/10/2020 DILATED RETINAL EXAM due on 02/18/2021 INFLUENZA(1) due on 04/07/2021 LUNG CANCER SCREENING due on 04/22/2021 Advanced Directives Completed: Have you ever planned for future healthcare decisions with a power of state's attorney, living will, or advance directives? Referrals: N/A Message Sent to Practice: NO Navigation Signature: Erendira Cosby MA April 29, 2021 8:30 AM [facility] Evaluation + Plan note Note Date & Type Note Facility Evaluation + Plan note No data available for this section [facility] Discharge instructions Note Date & Type Note Facility Hospital Discharge instructions No data available for this section [facility] Progress note Note Date & Type Note Facility Progress note No data available for this section [facility] Summary Purpose Family History No Family History Records FoundNo Family History Records Found Advance Directives No Advanced Directives Records FoundNo Advanced Directives Records Found Additional Source Comments (unrecognized sect ion and content) No Status Records FoundNo Status Records Found INFORMATION SOURCE (unrecogn ized section and content) DATE CREATED AUTHOR AUTHOR'S ORGANIZ ATION 10/12/2022 [facility] ([place]) Care Team (unrecognized sect ion and content) Care Team Personnel Name: PRISCILA WILSON MD Member Role: Primary Care Physician Address: Address: [address] [place] [address]- US FOR RECORDS PERTAINING TO PATIENTS WHO ARE OR HAVE BEEN ENROLLED IN A CHEMICAL DEPENDENCY/SUBSTANCEABUSE PROGRAM, SOME INFORMATION MAY BE OMITTED. This clinical summary was aggregated from multiple sources. Caution should be exercised in using it in the provision of clinical care. This summary normalizes information from multiple sources, and as a consequence, information in this document may materially change the coding, format and clinical context of patient data. In addition, data may be omitted in some cases. CLINICAL DECISIONS SHOULD BE BASED ON THE PRIMARY CLINICAL RECORDS. [facility] [employer] [facility]. provides no warranty or guarantee of the accuracy or completeness of information in this document.
--- NOTE | 2023-08-16 13:41 | CT_ITS ---
INDICATION: Cervical lymphadenopathy EXAMINATION: CT NECK WITH CONTRAST - CT Soft Tissue Neck W/ Contrast Injection TECHNIQUE: Helically acquired images were obtained of the neck following IV contrast. A radiation dose optimization technique was used for this scan. IV Contrast dosage and agent: 75 cc of Isovue-370 RADIATION DOSAGE (If Supplied By Facility): CTDIvol = ( 16.43 ) mGy, DLP = ( 558.18 ) mGycm COMPARISON: Prior study dated: 07/07/2023 FINDINGS: NASOPHARYNX: Unremarkable. SUPRAHYOID NECK: Unremarkable oropharynx, oral cavity, parapharyngeal space, and retropharyngeal space. INFRAHYOID NECK: Unremarkable larynx, hypopharynx, and supraglottis. THYROID: No focal lesions. SALIVARY GLANDS: Unremarkable. LYMPH NODES: Essentially stable 1.4 x 1.2 x 2.4 cm node on the left side of the neck inferior to the left parotid gland. No other nodes are identified. VASCULAR STRUCTURES: Atherosclerotic calcifications of the proximal internal carotid arteries without significant stenosis are again seen. VISUALIZED PORTIONS OF THE ORBITS, PARANASAL SINUSES, MASTOID AIR CELLS AND SKULL BASE: Unremarkable. BONES: Degenerative changes of the spine. THORACIC INLET: Clear lung apices. CT/Soft Tissue Neck WITH Contrast IMPRESSION: 1. Stable enhancing mass/lymph node on the left side of the neck as described above. 2. No new masses are identified. Electronically Signed: Tacho Foster MD at 14:03 [facility] ,
[2023-08-16 13:53] LABS: EGFR FINGERSTICK > 60.0000 mL/min (>60)
== END | disposition home or self-care (01) ==
LOC: US 13:08 → CT 13:50
PROVIDERS: PCP Internal Medicine; Referring Provider Internal Medicine; Visit Provider Internal Medicine
DX: R59.0 Localized enlarged lymph nodes (principal)
CPT/HCPCS: 70491; Q9967

== ENCOUNTER → 2023-08-30 | Outpatient (CLI) | payer MEDICARE, OTHER, SELFPAY ==
--- NOTE | 2023-08-30 | MASS_PTH ---
PATHOLOGY RESULTS PATIENT: FARHAD DUNAWAY LOC: [facility] U#:[id number] AGE/SX: 72/M ROOM: RE08/30/[address]: Dr. Jerome Seaman MD : 1950 BED: DIS: 08/30/2023 SPEC #: [id number] RECD: 08/30/23 15:28 STATUS: ANA REKiran #: [id number] BASIL: 08/30/23 00:[address]: Jerome Seaman DEPT: SURGICAL PATHOLOGY RECD BY: Jone Jason ENTERED: 08/31/23 13:16 SP TYPE: Mass OTHR DR: Dr. 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 Clinical correlation is suggested. AM:shahab 09/01/2023 COMMENT Case has been reviewed in consultation with Dr. Miles who concurs with the above diagnosis. IDC:[email or web address] MICROSCOPIC DESCRIPTION Slides are reviewed. GROSS DESCRIPTION Received in fixative is one container labeled with the patient's name and designated left neck mass. The specimen consists of multiple elongated fragments of kelsey soft tissue that in aggregate measure 1.0 x 0.3 x 0.1 cm. The specimen is totally submitted in one cassette. / TREY:shahab 08/31/2023 TC:5 CPT: 28810
== END | disposition home or self-care (01) ==
LOC: LABSPEC 15:31
PROVIDERS: PCP Internal Medicine; Referring Provider Surgery; Visit Provider Surgery
DX: R22.1 Localized swelling, mass and lump, neck (principal)
CPT/HCPCS: 88305

== ENCOUNTER → 2024-06-14 | Outpatient (CLI) | payer MEDICARE, OTHER, SELFPAY ==
[2024-06-14 14:07] LABS: PSA,Total- Diagnostic < 0.01 ng/mL (0.0-4.0)
== END | disposition home or self-care (01) ==
LOC: LAB 12:38
PROVIDERS: PCP Internal Medicine; Referring Provider Urology; Visit Provider Urology
DX: C61 Malignant neoplasm of prostate (principal)
CPT/HCPCS: 36415; 84153

== ENCOUNTER → 2024-06-17 | Outpatient (CLI) | payer MEDICARE, OTHER, SELFPAY ==
[2024-06-17 10:18] LABS: Absolute Lymphocyte Count 2.29 X10^3/uL (0.83-4.51); Absolute Neutrophil Count 5.3 X10^3/uL (2.0-7.7); Basophil# 0.09 X10^3/uL; Basophil% 1.1 % (0-1); Eosinophil# 0.12 X10^3/uL; Eosinophils% 1.4 % (0-5); Hematocrit 38.8 % (40-54); Hemoglobin 13.3 g/dL (13.0-16.5); Lymphocyte # 2.29 X10^3/ul (0.83-4.51); Lymphocyte % 26.8 % (19-41); Mean Corp Hgb Conc 34.3 g/dL (32-36); Mean Corpuscular Hgb 32.1 pg (27.0-32.0); Mean Corpuscular Volume 93.7 fL (80-94); Mean Platelet Vol. 10.2 fl (6.2-12.0); Monocyte# 0.71 X10^3/uL; Monocyte% 8.3 % (0-10); NRBC Flagged by Analyzer 0 % (0-5); Neutrophil # 5.32 X10^3/uL (2.7-7.7); Neutrophil % 62.2 % (47-70); Platelet Count 286 K/mm3 (150-450); RBC Distribution Width CV 13.2 % (11.6-14.6); RBC Distribution Width SD 45.8 fl (35.1-43.9); Red Blood Count 4.14 M/mm3 (4.6-6.2); White Blood Count 8.6 K/mm3 (4.4-11.0)
[2024-06-17 10:42] LABS: Vitamin D,25 Hydroxy 42.8 ng/mL
[2024-06-17 10:59] LABS: AST(SGOT) 14 U/L (15-37); Alanine Aminotransfer ALT/SGPT 18 U/L (16-61); Albumin, Serum 3.7 g/dL (3.2-5.0); Alkaline Phosphatase 75 U/L (45-117); Anion Gap 8 (5-15); BUN 14 mg/dL (7-18); BUN/Creat Ratio 10.7 RATIO (10-20); Calcium,Total 9.4 mg/dL (8.5-10.1); Chloride 104 mmol/L (98-107); Cholesterol 175 mg/dL (200); Creatinine, Serum 1.31 mg/dL (0.70-1.30); EST Glomerular Filtration Rate 57 mL/min (>60); Est Glom Filt Rate - Afr Amer 69 mL/min (>60); Globulin 3.6 g/dL (2.2-4.2); Glucose 156 mg/dL (74-106); High Density Lipoprotein 47 mg/dL; Magnesium 1.9 mg/dL (1.6-2.6); PSA,Total - Annual Screen < 0.01 ng/mL (0.00-4.00); Potassium 4.4 mmol/L (3.5-5.1); Protein, Total 7.3 g/dL (6.4-8.2); Sodium Level 139 mmol/L (136-145); Triglycerides 157 mg/dL; Very Low Density Lipoprotein 31 mg/dL (5-40)
== END | disposition home or self-care (01) ==
LOC: LAB 09:36
PROVIDERS: PCP Internal Medicine; Referring Provider Internal Medicine; Visit Provider Internal Medicine
DX: K21.9 Gastro-esophageal reflux disease without esophagitis (principal); E11.9 Type 2 diabetes mellitus without complications; M19.90 Unspecified osteoarthritis, unspecified site; E78.5 Hyperlipidemia, unspecified; I10 Essential (primary) hypertension; M10.9 Gout, unspecified; E55.9 Vitamin D deficiency, unspecified; Z12.5 Encounter for screening for malignant neoplasm of prostate
CPT/HCPCS: 36415; 80053; 80061; 82306; 83735; 84153; 84443; 84550; 85025; G0103

== ENCOUNTER → 2025-06-11 | Outpatient (CLI) | payer MEDICARE, OTHER, SELFPAY ==
[2025-06-11 13:31] LABS: Hematocrit 39.3 % (40-54); Hemoglobin 13.1 g/dL (13.0-16.5); Immature Granulocytes Count 0.030 X10^3/uL (0.0-0.0); Mean Corp Hgb Conc 33.3 g/dL (32-36); Mean Corpuscular Volume 95.6 fL (80-94); Mean Platelet Vol. 10.7 fl (6.2-12.0); NRBC Flagged by Analyzer 0 % (0-5); Platelet Count 304 K/mm3 (150-450); RBC Distribution Width CV 13.9 % (11.6-14.6); RBC Distribution Width SD 48.6 fl (35.1-43.9); Red Blood Count 4.11 M/mm3 (4.6-6.2); White Blood Count 9.1 K/mm3 (4.4-11.0)
[2025-06-11 14:07] LABS: PSA,Total- Diagnostic < 0.02 ng/mL (0.00-4.00)
[2025-06-11 14:18] LABS: AST(SGOT) 23 U/L (<=37); Alanine Aminotransfer ALT/SGPT 18 U/L (<=46); Albumin, Serum 4.2 g/dL (3.4-4.8); Alkaline Phosphatase 67 U/L (40-129); Anion Gap 11 (5-15); BUN 14 mg/dL (4-19); BUN/Creat Ratio 11.6 RATIO (10-20); Calcium,Total 9.6 mg/dL (7.6-11.0); Carbon Dioxide 26.1 mmol/L (21.0-32.0); Chloride 101 mmol/L (98-108); Cholesterol 147 mg/dL (<=200); Globulin 2.8 g/dL (2.2-4.2); Glucose 197 mg/dL (70-99); Low Density Lipoprotein Calc. 80 mg/dL; Magnesium 1.9 mg/dL (1.5-2.2); Potassium 4.4 mmol/L (3.3-5.1); Triglycerides 113 mg/dL; Very Low Density Lipoprotein 23 mg/dL (5-40); Vitamin B12 530 pg/mL (180-914); Vitamin D,25 Hydroxy 42.7 ng/mL (30-100); cholesterol:hdl ratio screen 3.18
== END | disposition home or self-care (01) ==
LOC: LAB 12:27
PROVIDERS: Nurse Practitioner; PCP Internal Medicine; Referring Provider Internal Medicine; Visit Provider Internal Medicine
DX: C61 Malignant neoplasm of prostate (principal); E11.9 Type 2 diabetes mellitus without complications; E55.9 Vitamin D deficiency, unspecified; K21.9 Gastro-esophageal reflux disease without esophagitis; M19.90 Unspecified osteoarthritis, unspecified site; E78.5 Hyperlipidemia, unspecified; I10 Essential (primary) hypertension; M10.9 Gout, unspecified
CPT/HCPCS: 36415; 80053; 80061; 82306; 82607; 83036; 83735; 84153; 84443; 85025